=== PATIENT | female | born 1955 | race Caucasian/White ===

== ENCOUNTER → 2017-08-27 14:45 | Outpatient (CLI) | payer OTHER, SELFPAY ==
[2017-08-27 15:20] LABS: Mean Corpuscular HGB Conc 33.8 % (30-36); White Blood Cell Count 2.2 X10^3/uL (4.5-11.0)
[2017-08-27 15:43] LABS: Add Manual Diff / Slide Review YES; Hemoglobin 11.2 g/dL (12.0-16.0); Mean Corpuscular Hemoglobin 34.9 PG (26-34); Mean Corpuscular Volume 103.2 fL (80-100); Platelet Count 155 X10^3/uL (150-400); Red Cell Distribution Width 17.8 % (11.6-14.8)
[2017-08-27 16:11] LABS: Neutrophils Absolute Manual 1188 /uL (3000-5900); Total Cells Counted 100
[2017-08-27 16:12] LABS: Anisocytosis 1+; Macrocytosis 1+
== END ==
PROVIDERS: PCP Internal Medicine Medical Oncology; Visit Provider Internal Medicine Medical Oncology
DX: C50.919 Malignant neoplasm of unspecified site of unspecified female breast (principal)
CPT/HCPCS: 36415; 85025

== ENCOUNTER → 2017-09-27 16:25 | Outpatient (CLI) | payer OTHER, SELFPAY ==
[2017-09-27 16:58] LABS: Add Manual Diff / Slide Review NO; Basophils Percent Auto 3.9 % (0-2); Eosinophils Percent Auto 1.4 % (2-4); Hematocrit 34.2 % (36-46); Hemoglobin 11.5 g/dL (12.0-16.0); Lymphocytes Percent Auto 23.1 % (25-40); Mean Corpuscular HGB Conc 33.6 % (30-36); Mean Corpuscular Hemoglobin 35.1 PG (26-34); Mean Corpuscular Volume 104.4 fL (80-100); Neutrophils Absolute Auto 1300 /uL (3000-5900); Neutrophils Percent Auto 56.6 % (50-75); Platelet Count 191 X10^3/uL (150-400); Red Blood Cell Count 3.28 X10^6/uL (4.0-5.2); Red Cell Distribution Width 17.4 % (11.6-14.8); White Blood Cell Count 2.4 X10^3/uL (4.5-11.0)
== END ==
PROVIDERS: PCP Internal Medicine Medical Oncology; Visit Provider Internal Medicine Medical Oncology
DX: C50.919 Malignant neoplasm of unspecified site of unspecified female breast (principal)
CPT/HCPCS: 36415; 85025

== ENCOUNTER → 2017-10-27 15:57 | Outpatient (CLI) | payer OTHER, SELFPAY ==
[2017-10-27 17:37] LABS: Hemoglobin 11.3 g/dL (12.0-16.0); Mean Corpuscular Hemoglobin 35.5 PG (26-34); Red Blood Cell Count 3.18 X10^6/uL (4.0-5.2)
[2017-10-27 17:43] LABS: Add Manual Diff / Slide Review NO; Basophils Percent Auto 1.8 % (0-2); Eosinophils Percent Auto 1.3 % (2-4); Hematocrit 33.5 % (36-46); Lymphocytes Percent Auto 27.4 % (25-40); Mean Corpuscular HGB Conc 33.7 % (30-36); Mean Corpuscular Volume 105.4 fL (80-100); Monocytes Percent Auto 12.8 % (3-14); Neutrophils Absolute Auto 1300 /uL (3000-5900); Neutrophils Percent Auto 56.7 % (50-75); Platelet Count 169 X10^3/uL (150-400); Red Cell Distribution Width 17.6 % (11.6-14.8)
[2017-10-27 17:44] LABS: White Blood Cell Count 2.4 X10^3/uL (4.5-11.0)
== END ==
PROVIDERS: PCP Internal Medicine Medical Oncology; Visit Provider Internal Medicine Medical Oncology
DX: C50.919 Malignant neoplasm of unspecified site of unspecified female breast (principal)
CPT/HCPCS: 36415; 85025

== ENCOUNTER → 2017-11-26 13:56 | Outpatient (CLI) | payer OTHER, SELFPAY ==
[2017-11-26 14:27] LABS: Add Manual Diff / Slide Review NO; Basophils Percent Auto 1.8 % (0-2); Eosinophils Percent Auto 1.5 % (2-4); Lymphocytes Percent Auto 27.3 % (25-40); Mean Corpuscular HGB Conc 33.5 % (30-36); Mean Corpuscular Hemoglobin 35.1 PG (26-34); Mean Corpuscular Volume 104.7 fL (80-100); Monocytes Percent Auto 14.9 % (3-14); Neutrophils Absolute Auto 1200 /uL (3000-5900); Neutrophils Percent Auto 54.5 % (50-75); Platelet Count 162 X10^3/uL (150-400); Red Blood Cell Count 3.43 X10^6/uL (4.0-5.2); Red Cell Distribution Width 17.5 % (11.6-14.8); White Blood Cell Count 2.3 X10^3/uL (4.5-11.0)
== END ==
PROVIDERS: PCP Internal Medicine Medical Oncology; Visit Provider Internal Medicine Medical Oncology
DX: C50.919 Malignant neoplasm of unspecified site of unspecified female breast (principal)
CPT/HCPCS: 36415; 85025

== ENCOUNTER → 2017-12-27 17:35 | Outpatient (CLI) | payer OTHER, SELFPAY ==
[2017-12-27 18:44] LABS: Add Manual Diff / Slide Review NO; Basophils Percent Auto 2.5 % (0-2); Hematocrit 33.7 % (36-46); Hemoglobin 11.3 g/dL (12.0-16.0); Lymphocytes Percent Auto 22.6 % (25-40); Mean Corpuscular HGB Conc 33.5 % (30-36); Mean Corpuscular Hemoglobin 35.4 PG (26-34); Mean Corpuscular Volume 105.7 fL (80-100); Monocytes Percent Auto 14.2 % (3-14); Neutrophils Absolute Auto 1600 /uL (3000-5900); Neutrophils Percent Auto 59.7 % (50-75); Platelet Count 209 X10^3/uL (150-400); Red Blood Cell Count 3.19 X10^6/uL (4.0-5.2); Red Cell Distribution Width 17.7 % (11.6-14.8); White Blood Cell Count 2.7 X10^3/uL (4.5-11.0)
== END ==
PROVIDERS: PCP Internal Medicine Medical Oncology; Visit Provider Internal Medicine Medical Oncology
DX: C50.919 Malignant neoplasm of unspecified site of unspecified female breast (principal)
CPT/HCPCS: 36415; 85025

== ENCOUNTER → 2018-03-30 17:34 | Outpatient (CLI) | payer OTHER, SELFPAY ==
[2018-03-30 18:19] LABS: Add Manual Diff / Slide Review NO; Basophils Percent Auto 2.3 % (0-2); Eosinophils Percent Auto 1.5 % (2-4); Hemoglobin 10.9 g/dL (12.0-16.0); Lymphocytes Percent Auto 23.3 % (25-40); Mean Corpuscular Hemoglobin 34.8 PG (26-34); Mean Corpuscular Volume 105.4 fL (80-100); Monocytes Percent Auto 13.6 % (3-14); Neutrophils Absolute Auto 1400 /uL (1500-7000); Neutrophils Percent Auto 59.3 % (50-75); Platelet Count 252 X10^3/uL (150-400); Red Blood Cell Count 3.13 X10^6/uL (4.0-5.2); Red Cell Distribution Width 18.1 % (11.6-14.8); White Blood Cell Count 2.4 X10^3/uL (4.5-11.0)
== END ==
PROVIDERS: PCP Internal Medicine Medical Oncology; Visit Provider Internal Medicine Medical Oncology
DX: C50.912 Malignant neoplasm of unspecified site of left female breast (principal)
CPT/HCPCS: 36415; 85025

== ENCOUNTER → 2018-04-29 14:12 | Outpatient (CLI) | payer OTHER, SELFPAY ==
[2018-04-29 14:50] LABS: Add Manual Diff / Slide Review NO; Basophils Absolute Auto 100 /uL (0-100); Basophils Percent Auto 2.4 % (0-2); Eosinophils Absolute Auto 0 /uL (0-450); Eosinophils Percent Auto 1.3 % (2-4); Hematocrit 33.6 % (36-46); Lymphocytes Absolute Auto 500 /uL (1100-4500); Lymphocytes Percent Auto 22.1 % (25-40); Mean Corpuscular HGB Conc 32.8 % (30-36); Mean Corpuscular Hemoglobin 34.8 PG (26-34); Mean Corpuscular Volume 106.2 fL (80-100); Monocytes Absolute Auto 300 /uL (0-900); Monocytes Percent Auto 11.8 % (3-14); Neutrophils Absolute Auto 1400 /uL (1500-7000); Neutrophils Percent Auto 62.4 % (50-75); Platelet Count 218 X10^3/uL (150-400); Red Blood Cell Count 3.16 X10^6/uL (4.0-5.2); White Blood Cell Count 2.3 X10^3/uL (4.5-11.0)
== END ==
PROVIDERS: PCP Internal Medicine Medical Oncology; Visit Provider Internal Medicine Medical Oncology
DX: C50.919 Malignant neoplasm of unspecified site of unspecified female breast (principal)
CPT/HCPCS: 36415; 85025

== ENCOUNTER → 2018-07-02 12:41 | Outpatient (CLI) | payer OTHER, SELFPAY ==
[2018-07-02 13:23] LABS: Add Manual Diff / Slide Review NO; Basophils Absolute Auto 0 /uL (0-100); Basophils Percent Auto 1.2 % (0-2); Eosinophils Absolute Auto 0 /uL (0-450); Eosinophils Percent Auto 1.2 % (2-4); Hematocrit 32.1 % (36-46); Hemoglobin 10.8 g/dL (12.0-16.0); Lymphocytes Absolute Auto 400 /uL (1100-4500); Lymphocytes Percent Auto 17.9 % (25-40); Mean Corpuscular HGB Conc 33.5 % (30-36); Mean Corpuscular Hemoglobin 34.9 PG (26-34); Mean Corpuscular Volume 104.3 fL (80-100); Monocytes Absolute Auto 300 /uL (0-900); Monocytes Percent Auto 13.1 % (3-14); Neutrophils Absolute Auto 1500 /uL (1500-7000); Neutrophils Percent Auto 66.6 % (50-75); Platelet Count 244 X10^3/uL (150-400); Red Blood Cell Count 3.08 X10^6/uL (4.0-5.2); Red Cell Distribution Width 19.3 % (11.6-14.8); White Blood Cell Count 2.3 X10^3/uL (4.5-11.0)
== END ==
PROVIDERS: PCP Internal Medicine Medical Oncology; Visit Provider Internal Medicine Medical Oncology
DX: C50.919 Malignant neoplasm of unspecified site of unspecified female breast (principal)
CPT/HCPCS: 36415; 85025

== ENCOUNTER → 2018-08-02 16:36 | Outpatient (CLI) | payer OTHER, SELFPAY ==
[2018-08-02 17:36] LABS: Add Manual Diff / Slide Review NO; Basophils Absolute Auto 100 /uL (0-100); Basophils Percent Auto 2.3 % (0-2); Eosinophils Absolute Auto 0 /uL (0-450); Hematocrit 34.3 % (36-46); Lymphocytes Absolute Auto 500 /uL (1100-4500); Lymphocytes Percent Auto 20.5 % (25-40); Mean Corpuscular HGB Conc 32.2 % (30-36); Mean Corpuscular Hemoglobin 33.8 PG (26-34); Mean Corpuscular Volume 104.8 fL (80-100); Monocytes Absolute Auto 400 /uL (0-900); Monocytes Percent Auto 15.4 % (3-14); Neutrophils Absolute Auto 1600 /uL (1500-7000); Neutrophils Percent Auto 60.8 % (50-75); Platelet Count 273 X10^3/uL (150-400); Red Blood Cell Count 3.27 X10^6/uL (4.0-5.2); Red Cell Distribution Width 18.8 % (11.6-14.8); White Blood Cell Count 2.6 X10^3/uL (4.5-11.0)
== END ==
PROVIDERS: PCP Internal Medicine Medical Oncology; Visit Provider Internal Medicine Medical Oncology
DX: C50.919 Malignant neoplasm of unspecified site of unspecified female breast (principal)
CPT/HCPCS: 36415; 85025

== ENCOUNTER → 2018-10-04 17:45 | Outpatient (CLI) | payer OTHER, SELFPAY ==
[2018-10-04 18:23] LABS: Add Manual Diff / Slide Review NO; Basophils Absolute Auto 0 /uL (0-100); Basophils Percent Auto 1.4 % (0-2); Eosinophils Absolute Auto 0 /uL (0-450); Eosinophils Percent Auto 1.5 % (2-4); Hematocrit 31.5 % (36-46); Hemoglobin 10.1 g/dL (12.0-16.0); Lymphocytes Absolute Auto 700 /uL (1100-4500); Lymphocytes Percent Auto 23.3 % (25-40); Mean Corpuscular HGB Conc 32.1 % (30-36); Mean Corpuscular Hemoglobin 33.1 PG (26-34); Mean Corpuscular Volume 103.3 fL (80-100); Monocytes Absolute Auto 400 /uL (0-900); Neutrophils Absolute Auto 1800 /uL (1500-7000); Neutrophils Percent Auto 61.8 % (50-75); Platelet Count 370 X10^3/uL (150-400); Red Blood Cell Count 3.05 X10^6/uL (4.0-5.2); Red Cell Distribution Width 21.4 % (11.6-14.8); White Blood Cell Count 2.9 X10^3/uL (4.5-11.0)
[2018-10-04 18:59] LABS: Anisocytosis 3+; Macrocytosis 2+
[2018-10-04 19:00] LABS: Polychromasia 1+
== END ==
PROVIDERS: PCP Internal Medicine Medical Oncology; Visit Provider Internal Medicine Medical Oncology
DX: C50.919 Malignant neoplasm of unspecified site of unspecified female breast (principal)
CPT/HCPCS: 36415; 85025

== ENCOUNTER → 2018-11-02 17:44 | Outpatient (CLI) | payer OTHER, SELFPAY ==
[2018-11-02 18:28] LABS: Hemoglobin 10.1 g/dL (12.0-16.0); Mean Corpuscular HGB Conc 32.6 % (30-36); Mean Corpuscular Hemoglobin 34.4 PG (26-34); Mean Corpuscular Volume 105.5 fL (80-100); Platelet Count 231 X10^3/uL (150-400); Red Blood Cell Count 2.93 X10^6/uL (4.0-5.2); Red Cell Distribution Width 22.9 % (11.6-14.8)
[2018-11-02 18:30] LABS: Add Manual Diff / Slide Review YES
[2018-11-02 18:37] LABS: White Blood Cell Count 1.8 X10^3/uL (4.5-11.0)
[2018-11-02 19:18] LABS: Neutrophils Absolute Manual 1008 /uL (3000-5900); Total Cells Counted 100
[2018-11-02 19:20] LABS: Anisocytosis 2+
== END ==
PROVIDERS: PCP Internal Medicine Medical Oncology; Visit Provider Internal Medicine Medical Oncology
DX: C50.919 Malignant neoplasm of unspecified site of unspecified female breast (principal)
CPT/HCPCS: 36415; 85025

== ENCOUNTER → 2018-11-24 15:54 | Outpatient (CLI) | payer OTHER, SELFPAY ==
[2018-11-24 16:54] LABS: Hematocrit 28.4 % (36-46); Hemoglobin 9.4 g/dL (12.0-16.0); Mean Corpuscular HGB Conc 33.2 % (30-36); Mean Corpuscular Hemoglobin 34.5 PG (26-34); Mean Corpuscular Volume 103.7 fL (80-100); Platelet Count 175 X10^3/uL (150-400); Red Blood Cell Count 2.74 X10^6/uL (4.0-5.2); Red Cell Distribution Width 20.6 % (11.6-14.8)
[2018-11-24 17:36] LABS: Add Manual Diff / Slide Review YES
[2018-11-24 17:55] LABS: Anisocytosis 1+; Neutrophils Absolute Manual 1071 /uL (3000-5900); Total Cells Counted 100
[2018-11-24 17:57] LABS: Albumin 3.5 g/dL (3.5-5.0); BUN Creatinine Ratio 23.6 (6-22); Blood Urea Nitrogen 26 mg/dL (7-17); Calcium 9.8 mg/dL (8.4-10.2); Carbon Dioxide 28 mmol/L (22-32); Chloride 108 mmol/L (98-107); Estimated Glomerular Filt Rate 50.2 mL/min (>60); Glucose 83 mg/dL (80-110); HEMOLYSIS 19 (0-50); Potassium 4.4 mmol/L (3.4-5.1); Sodium 142 mmol/L (137-145)
[2018-11-24 18:55] LABS: White Blood Cell Count 1.7 X10^3/uL (4.5-11.0)
== END ==
PROVIDERS: PCP Internal Medicine Medical Oncology; Visit Provider Internal Medicine Nephrology
DX: N18.3 Chronic kidney disease, stage 3 (moderate) (principal)
CPT/HCPCS: 36415; 80069; 85025

== ENCOUNTER → 2018-11-25 17:23 | Outpatient (CLI) | payer OTHER, SELFPAY ==
[2018-11-25 18:05] LABS: Creatinine Urine Random 17.7 mg/dL; Protein (Total) Urine Random 16 mg/dL (0-12)
== END ==
PROVIDERS: PCP Internal Medicine Medical Oncology; Visit Provider Internal Medicine Nephrology
DX: N18.3 Chronic kidney disease, stage 3 (moderate) (principal)
CPT/HCPCS: 82570; 84156

== ENCOUNTER → 2018-12-03 12:24 | Outpatient (CLI) | payer OTHER, SELFPAY ==
[2018-12-03 13:39] LABS: Hematocrit 29.8 % (36-46); Hemoglobin 9.7 g/dL (12.0-16.0); Mean Corpuscular HGB Conc 32.6 % (30-36); Mean Corpuscular Hemoglobin 34.6 PG (26-34); Mean Corpuscular Volume 106.1 fL (80-100); Platelet Count 210 X10^3/uL (150-400); Red Blood Cell Count 2.81 X10^6/uL (4.0-5.2); Red Cell Distribution Width 21.2 % (11.6-14.8)
[2018-12-03 13:48] LABS: Add Manual Diff / Slide Review YES; White Blood Cell Count 1.8 X10^3/uL (4.5-11.0)
[2018-12-03 14:49] LABS: Neutrophils Absolute Manual 972 /uL (3000-5900); Total Cells Counted 100
[2018-12-03 14:50] LABS: Anisocytosis 2+
== END ==
PROVIDERS: PCP Internal Medicine Medical Oncology; Visit Provider Internal Medicine Medical Oncology
DX: C50.919 Malignant neoplasm of unspecified site of unspecified female breast (principal)
CPT/HCPCS: 36415; 85025

== ENCOUNTER → 2019-01-03 17:16 | Outpatient (CLI) | payer OTHER, SELFPAY ==
[2019-01-03 17:56] LABS: Hematocrit 28.3 % (36-46); Hemoglobin 9.2 g/dL (12.0-16.0); Mean Corpuscular HGB Conc 32.5 % (30-36); Mean Corpuscular Hemoglobin 34.6 PG (26-34); Mean Corpuscular Volume 106.4 fL (80-100); Platelet Count 206 X10^3/uL (150-400); Red Blood Cell Count 2.66 X10^6/uL (4.0-5.2); Red Cell Distribution Width 20.3 % (11.6-14.8)
[2019-01-03 18:01] LABS: Add Manual Diff / Slide Review YES
[2019-01-03 18:21] LABS: Anisocytosis 2+; Neutrophils Absolute Manual 1140 /uL (3000-5900); Total Cells Counted 50
[2019-01-03 18:22] LABS: Macrocytosis 2+
[2019-01-03 19:33] LABS: White Blood Cell Count 1.9 X10^3/uL (4.5-11.0)
== END ==
PROVIDERS: PCP Internal Medicine Medical Oncology; Visit Provider Internal Medicine Medical Oncology
DX: C50.919 Malignant neoplasm of unspecified site of unspecified female breast (principal)
CPT/HCPCS: 36415; 85025

== ENCOUNTER → 2019-02-03 16:58 | Outpatient (CLI) | payer OTHER, SELFPAY ==
[2019-02-03 17:49] LABS: Hematocrit 28.7 % (36-46); Hemoglobin 9.2 g/dL (12.0-16.0); Mean Corpuscular HGB Conc 32.1 % (30-36); Mean Corpuscular Hemoglobin 34.6 PG (26-34); Mean Corpuscular Volume 107.7 fL (80-100); Platelet Count 223 X10^3/uL (150-400); Red Blood Cell Count 2.66 X10^6/uL (4.0-5.2); Red Cell Distribution Width 21.5 % (11.6-14.8)
[2019-02-03 17:50] LABS: Add Manual Diff / Slide Review YES
[2019-02-03 18:13] LABS: Neutrophils Absolute Manual 1280 /uL (3000-5900); Total Cells Counted 50
[2019-02-03 18:14] LABS: Anisocytosis 3+
== END ==
PROVIDERS: PCP Internal Medicine Medical Oncology; Visit Provider Internal Medicine Medical Oncology
DX: C50.919 Malignant neoplasm of unspecified site of unspecified female breast (principal)
CPT/HCPCS: 36415; 85025

== ENCOUNTER → 2019-03-06 16:13 | Outpatient (CLI) | payer OTHER, SELFPAY ==
[2019-03-06 17:33] LABS: Hemoglobin 9.6 g/dL (12.0-16.0); Mean Corpuscular Hemoglobin 33.8 PG (26-34); Mean Corpuscular Volume 105.9 fL (80-100); Platelet Count 298 X10^3/uL (150-400); Red Blood Cell Count 2.84 X10^6/uL (4.0-5.2); Red Cell Distribution Width 21.5 % (11.6-14.8); White Blood Cell Count 2.7 X10^3/uL (4.5-11.0)
[2019-03-06 17:37] LABS: Add Manual Diff / Slide Review YES
[2019-03-06 17:55] LABS: Neutrophils Absolute Manual 1674 /uL (3000-5900); Total Cells Counted 50
[2019-03-06 17:56] LABS: Anisocytosis 2+; Macrocytosis 1+; Poikilocytosis 1+
[2019-03-06 17:57] LABS: Polychromasia 1+
== END ==
PROVIDERS: PCP Internal Medicine Medical Oncology; Visit Provider Internal Medicine Medical Oncology
DX: C50.919 Malignant neoplasm of unspecified site of unspecified female breast (principal)
CPT/HCPCS: 36415; 85025

== ENCOUNTER → 2019-04-06 16:06 | Outpatient (CLI) | payer OTHER, SELFPAY ==
[2019-04-06 17:12] LABS: Hematocrit 30.4 % (36-46); Mean Corpuscular Hemoglobin 34.2 PG (26-34); Mean Corpuscular Volume 103.7 fL (80-100); Platelet Count 185 X10^3/uL (150-400); Red Blood Cell Count 2.93 X10^6/uL (4.0-5.2); Red Cell Distribution Width 19.7 % (11.6-14.8)
[2019-04-06 17:13] LABS: Add Manual Diff / Slide Review YES
[2019-04-06 17:17] LABS: Macrocytosis 1+; Neutrophils Absolute Manual 1216 /uL (3000-5900); Total Cells Counted 25
[2019-04-06 17:18] LABS: Anisocytosis 2+; Poikilocytosis 1+
[2019-04-06 17:25] LABS: White Blood Cell Count 1.9 X10^3/uL (4.5-11.0)
== END ==
PROVIDERS: PCP Internal Medicine Medical Oncology; Visit Provider Internal Medicine Medical Oncology
DX: C50.919 Malignant neoplasm of unspecified site of unspecified female breast (principal)
CPT/HCPCS: 36415; 85025

== ENCOUNTER → 2019-05-10 16:34 | Outpatient (CLI) | payer OTHER, SELFPAY ==
[2019-05-10 17:25] LABS: Add Manual Diff / Slide Review NO; Basophils Absolute Auto 100 /uL (0-100); Basophils Percent Auto 3.3 % (0-2); Eosinophils Absolute Auto 0 /uL (0-450); Eosinophils Percent Auto 0.6 % (2-4); Hematocrit 27.9 % (36-46); Hemoglobin 9.4 g/dL (12.0-16.0); Lymphocytes Absolute Auto 400 /uL (1100-4500); Lymphocytes Percent Auto 19.3 % (25-40); Mean Corpuscular HGB Conc 33.6 % (30-36); Mean Corpuscular Hemoglobin 34.8 PG (26-34); Mean Corpuscular Volume 103.5 fL (80-100); Monocytes Absolute Auto 400 /uL (0-900); Monocytes Percent Auto 18.9 % (3-14); Neutrophils Absolute Auto 1200 /uL (1500-7000); Neutrophils Percent Auto 57.9 % (50-75); Platelet Count 360 X10^3/uL (150-400); Red Cell Distribution Width 20.5 % (11.6-14.8)
[2019-05-10 18:13] LABS: Macrocytosis 1+; Polychromasia 1+
[2019-05-10 18:14] LABS: Anisocytosis 2+
== END ==
PROVIDERS: PCP Internal Medicine Medical Oncology; Referring Provider Internal Medicine Medical Oncology; Visit Provider Internal Medicine Medical Oncology
DX: C50.919 Malignant neoplasm of unspecified site of unspecified female breast (principal)
CPT/HCPCS: 36415; 85025

== ENCOUNTER → 2019-06-09 17:56 | Outpatient (CLI) | payer OTHER, SELFPAY ==
[2019-06-09 18:11] LABS: Add Manual Diff / Slide Review NO; Basophils Absolute Auto 100 /uL (0-100); Basophils Percent Auto 3.4 % (0-2); Eosinophils Absolute Auto 0 /uL (0-450); Eosinophils Percent Auto 1.4 % (2-4); Hemoglobin 9.2 g/dL (12.0-16.0); Lymphocytes Absolute Auto 400 /uL (1100-4500); Lymphocytes Percent Auto 19.4 % (25-40); Mean Corpuscular HGB Conc 32.8 % (30-36); Mean Corpuscular Hemoglobin 34.8 PG (26-34); Mean Corpuscular Volume 106.1 fL (80-100); Monocytes Absolute Auto 400 /uL (0-900); Monocytes Percent Auto 18.4 % (3-14); Neutrophils Absolute Auto 1200 /uL (1500-7000); Neutrophils Percent Auto 57.4 % (50-75); Platelet Count 259 X10^3/uL (150-400); Red Blood Cell Count 2.64 X10^6/uL (4.0-5.2); Red Cell Distribution Width 22.3 % (11.6-14.8); White Blood Cell Count 2.2 X10^3/uL (4.5-11.0)
[2019-06-09 18:36] LABS: Anisocytosis 3+; Macrocytosis 1+; Poikilocytosis 1+; Polychromasia 1+
== END ==
PROVIDERS: PCP Internal Medicine Medical Oncology; Referring Provider Internal Medicine Medical Oncology; Visit Provider Internal Medicine Medical Oncology
DX: C50.919 Malignant neoplasm of unspecified site of unspecified female breast (principal)
CPT/HCPCS: 36415; 85025

== ENCOUNTER → 2019-09-09 12:59 | Outpatient (CLI) | payer OTHER, SELFPAY ==
[2019-09-09 13:15] LABS: Add Manual Diff / Slide Review NO; Basophils Absolute Auto 0 /uL (0-100); Basophils Percent Auto 1.7 % (0-2); Eosinophils Absolute Auto 0 /uL (0-450); Hematocrit 29.1 % (36-46); Hemoglobin 9.8 g/dL (12.0-16.0); Lymphocytes Absolute Auto 400 /uL (1100-4500); Lymphocytes Percent Auto 17.8 % (25-40); Mean Corpuscular HGB Conc 33.6 % (30-36); Mean Corpuscular Hemoglobin 35.5 PG (26-34); Mean Corpuscular Volume 105.8 fL (80-100); Monocytes Absolute Auto 300 /uL (0-900); Monocytes Percent Auto 14.3 % (3-14); Neutrophils Absolute Auto 1400 /uL (1500-7000); Neutrophils Percent Auto 65.2 % (50-75); Platelet Count 237 X10^3/uL (150-400); Red Blood Cell Count 2.75 X10^6/uL (4.0-5.2); Red Cell Distribution Width 21.4 % (11.6-14.8); White Blood Cell Count 2.2 X10^3/uL (4.5-11.0)
[2019-09-09 13:39] LABS: Anisocytosis 1+; Macrocytosis 1+
== END ==
PROVIDERS: PCP Internal Medicine Medical Oncology; Referring Provider Internal Medicine Hematology & Oncology; Visit Provider Internal Medicine Hematology & Oncology
DX: C50.919 Malignant neoplasm of unspecified site of unspecified female breast (principal)
CPT/HCPCS: 36415; 85025

== ENCOUNTER → 2019-10-12 15:39 | Outpatient (CLI) | payer OTHER, SELFPAY ==
[2019-10-12 16:15] LABS: Add Manual Diff / Slide Review NO; Basophils Absolute Auto 100 /uL (0-100); Basophils Percent Auto 2.8 % (0-2); Eosinophils Absolute Auto 0 /uL (0-450); Eosinophils Percent Auto 1.1 % (2-4); Hematocrit 28.5 % (36-46); Hemoglobin 9.3 g/dL (12.0-16.0); Lymphocytes Absolute Auto 500 /uL (1100-4500); Lymphocytes Percent Auto 18.1 % (25-40); Mean Corpuscular HGB Conc 32.5 % (30-36); Mean Corpuscular Hemoglobin 34.1 PG (26-34); Mean Corpuscular Volume 104.9 fL (80-100); Monocytes Absolute Auto 400 /uL (0-900); Monocytes Percent Auto 16.3 % (3-14); Neutrophils Absolute Auto 1600 /uL (1500-7000); Neutrophils Percent Auto 61.7 % (50-75); Platelet Count 381 X10^3/uL (150-400); Red Blood Cell Count 2.72 X10^6/uL (4.0-5.2); Red Cell Distribution Width 20.9 % (11.6-14.8); White Blood Cell Count 2.6 X10^3/uL (4.5-11.0)
[2019-10-12 17:02] LABS: Alanine Aminotransferase 10 IU/L (<35); Albumin 3.7 g/dL (3.5-5.0); Albumin Globulin Ratio 1.1 (1.0-2.8); Alkaline Phosphatase 50 U/L (38-126); Aspartate Aminotransferase 30 IU/L (14-36); BUN Creatinine Ratio 17.6 (6-22); Bilirubin Total 0.2 mg/dL (0.2-1.3); Blood Urea Nitrogen 18 mg/dL (7-17); Calcium 10.3 mg/dL (8.4-10.2); Carbon Dioxide 28 mmol/L (22-32); Chloride 107 mmol/L (98-107); Estimated Glomerular Filt Rate 54.6 mL/min (>60); Globulin 3.3 g/dL (1.7-4.1); Glucose 96 mg/dL (80-110); HEMOLYSIS < 15 (0-50); Potassium 4.3 mmol/L (3.4-5.1); Sodium 141 mmol/L (137-145)
[2019-10-12 17:17] LABS: Anisocytosis 1+; Macrocytosis 1+; Polychromasia 1+
[2019-10-12 17:33] LABS: Carcinoembryonic Antigen 11.8 ng/mL (0.1-3.0)
== END ==
PROVIDERS: PCP Internal Medicine Medical Oncology; Referring Provider Nurse Practitioner; Visit Provider Nurse Practitioner
DX: C50.919 Malignant neoplasm of unspecified site of unspecified female breast (principal)
CPT/HCPCS: 36415; 80053; 82378; 85025; 86300

== ENCOUNTER → 2019-11-10 16:26 | Outpatient (CLI) | payer OTHER, SELFPAY ==
[2019-11-10 17:12] LABS: Add Manual Diff / Slide Review NO; Basophils Absolute Auto 100 /uL (0-100); Basophils Percent Auto 2.6 % (0-2); Eosinophils Absolute Auto 0 /uL (0-450); Eosinophils Percent Auto 0.6 % (2-4); Hematocrit 28.4 % (36-46); Hemoglobin 9.3 g/dL (12.0-16.0); Lymphocytes Absolute Auto 400 /uL (1100-4500); Lymphocytes Percent Auto 17.7 % (25-40); Mean Corpuscular HGB Conc 32.7 % (30-36); Mean Corpuscular Hemoglobin 34.4 PG (26-34); Mean Corpuscular Volume 105.2 fL (80-100); Monocytes Absolute Auto 300 /uL (0-900); Monocytes Percent Auto 13.8 % (3-14); Neutrophils Absolute Auto 1400 /uL (1500-7000); Neutrophils Percent Auto 65.3 % (50-75); Platelet Count 260 X10^3/uL (150-400); Red Cell Distribution Width 21.9 % (11.6-14.8); White Blood Cell Count 2.2 X10^3/uL (4.5-11.0)
[2019-11-10 17:24] LABS: Alanine Aminotransferase 9 IU/L (<35); Albumin 3.7 g/dL (3.5-5.0); Albumin Globulin Ratio 1.1 (1.0-2.8); Alkaline Phosphatase 54 U/L (38-126); Aspartate Aminotransferase 30 IU/L (14-36); BUN Creatinine Ratio 19.1 (6-22); Bilirubin Total 0.3 mg/dL (0.2-1.3); Blood Urea Nitrogen 18 mg/dL (7-17); Calcium 10.4 mg/dL (8.4-10.2); Carbon Dioxide 30 mmol/L (22-32); Chloride 107 mmol/L (98-107); Globulin 3.5 g/dL (1.7-4.1); Glucose 95 mg/dL (80-110); HEMOLYSIS < 15 (0-50); Potassium 4.3 mmol/L (3.4-5.1); Sodium 143 mmol/L (137-145); Total Protein 7.2 g/dL (6.3-8.2)
[2019-11-10 17:31] LABS: Anisocytosis 2+; Macrocytosis 1+
[2019-11-10 17:53] LABS: Carcinoembryonic Antigen 11.3 ng/mL (0.1-3.0)
== END ==
PROVIDERS: PCP Internal Medicine Medical Oncology; Referring Provider Nurse Practitioner; Visit Provider Nurse Practitioner
DX: C50.919 Malignant neoplasm of unspecified site of unspecified female breast (principal)
CPT/HCPCS: 36415; 80053; 82378; 85025; 86300

== ENCOUNTER → 2019-12-12 15:42 | Outpatient (CLI) | payer OTHER, SELFPAY ==
[2019-12-12 17:08] LABS: Add Manual Diff / Slide Review NO; Basophils Absolute Auto 100 /uL (0-100); Basophils Percent Auto 3.6 % (0-2); Eosinophils Absolute Auto 0 /uL (0-450); Eosinophils Percent Auto 0.8 % (2-4); Hematocrit 29.7 % (36-46); Hemoglobin 9.8 g/dL (12.0-16.0); Lymphocytes Absolute Auto 400 /uL (1100-4500); Lymphocytes Percent Auto 14.5 % (25-40); Mean Corpuscular HGB Conc 32.9 % (30-36); Mean Corpuscular Hemoglobin 34.7 PG (26-34); Mean Corpuscular Volume 105.5 fL (80-100); Monocytes Absolute Auto 400 /uL (0-900); Monocytes Percent Auto 13.9 % (3-14); Neutrophils Absolute Auto 1900 /uL (1500-7000); Neutrophils Percent Auto 67.2 % (50-75); Platelet Count 396 X10^3/uL (150-400); Red Blood Cell Count 2.82 X10^6/uL (4.0-5.2); Red Cell Distribution Width 22.1 % (11.6-14.8); White Blood Cell Count 2.9 X10^3/uL (4.5-11.0)
[2019-12-12 17:26] LABS: Alanine Aminotransferase 14 IU/L (<35); Albumin 4.2 g/dL (3.5-5.0); Alkaline Phosphatase 58 U/L (38-126); Aspartate Aminotransferase 38 IU/L (14-36); BUN Creatinine Ratio 16.7 (6-22); Bilirubin Total 0.3 mg/dL (0.2-1.3); Blood Urea Nitrogen 16 mg/dL (7-17); Calcium 10.4 mg/dL (8.4-10.2); Carbon Dioxide 31 mmol/L (22-32); Chloride 105 mmol/L (98-107); Estimated Glomerular Filt Rate 58.5 mL/min (>60); Globulin 4.4 g/dL (1.7-4.1); Glucose 97 mg/dL (80-110); HEMOLYSIS < 15 (0-50); Potassium 3.4 mmol/L (3.4-5.1); Sodium 142 mmol/L (137-145); Total Protein 8.6 g/dL (6.3-8.2)
[2019-12-12 17:52] LABS: Anisocytosis 3+; Macrocytosis 3+
[2019-12-12 17:56] LABS: Carcinoembryonic Antigen 12.3 ng/mL (0.1-3.0)
[2019-12-13 07:08] LABS: Cancer Antigen 27.29 2028.5 U/mL (0.0-38.6)
== END ==
PROVIDERS: Internal Medicine; PCP Internal Medicine Medical Oncology; Referring Provider Nurse Practitioner; Visit Provider Nurse Practitioner
DX: C50.919 Malignant neoplasm of unspecified site of unspecified female breast (principal)
CPT/HCPCS: 36415; 80053; 82378; 85025; 86300

== ENCOUNTER → 2020-01-12 15:09 | Outpatient (CLI) | payer OTHER, SELFPAY ==
[2020-01-12 16:48] LABS: Add Manual Diff / Slide Review NO; Basophils Absolute Auto 100 /uL (0-100); Basophils Percent Auto 2.9 % (0-2); Eosinophils Absolute Auto 0 /uL (0-450); Eosinophils Percent Auto 0.6 % (2-4); Hematocrit 28.7 % (36-46); Hemoglobin 9.4 g/dL (12.0-16.0); Lymphocytes Absolute Auto 400 /uL (1100-4500); Mean Corpuscular HGB Conc 32.8 % (30-36); Mean Corpuscular Hemoglobin 35.1 PG (26-34); Mean Corpuscular Volume 107.2 fL (80-100); Monocytes Absolute Auto 400 /uL (0-900); Monocytes Percent Auto 16.6 % (3-14); Neutrophils Absolute Auto 1600 /uL (1500-7000); Neutrophils Percent Auto 62.9 % (50-75); Platelet Count 326 X10^3/uL (150-400); Red Blood Cell Count 2.68 X10^6/uL (4.0-5.2); Red Cell Distribution Width 22.8 % (11.6-14.8); White Blood Cell Count 2.6 X10^3/uL (4.5-11.0)
[2020-01-12 18:34] LABS: Macrocytosis 1+; Polychromasia 1+; Spherocytes 1+
[2020-01-12 18:35] LABS: Schistocytes 1+
[2020-01-12 18:51] LABS: Alanine Aminotransferase 10 IU/L (<35); Albumin 3.7 g/dL (3.5-5.0); Albumin Globulin Ratio 1.1 (1.0-2.8); Alkaline Phosphatase 56 U/L (38-126); Aspartate Aminotransferase 32 IU/L (14-36); BUN Creatinine Ratio 16.7 (6-22); Bilirubin Total 0.3 mg/dL (0.2-1.3); Blood Urea Nitrogen 17 mg/dL (7-17); Calcium 10.1 mg/dL (8.4-10.2); Carbon Dioxide 29 mmol/L (22-32); Chloride 106 mmol/L (98-107); Estimated Glomerular Filt Rate 54.4 mL/min (>60); Globulin 3.5 g/dL (1.7-4.1); Glucose 94 mg/dL (80-110); HEMOLYSIS < 15 (0-50); Potassium 4.6 mmol/L (3.4-5.1); Sodium 141 mmol/L (137-145); Total Protein 7.2 g/dL (6.3-8.2)
== END ==
PROVIDERS: Referring Provider Nurse Practitioner; Visit Provider Nurse Practitioner
DX: C50.919 Malignant neoplasm of unspecified site of unspecified female breast (principal)
CPT/HCPCS: 36415; 80053; 82378; 85025; 86300

== ENCOUNTER → 2020-04-17 16:00 | Outpatient (CLI) | payer OTHER, SELFPAY ==
[2020-04-17 17:16] LABS: Add Manual Diff / Slide Review NO; Basophils Absolute Auto 100 /uL (0-100); Basophils Percent Auto 3.6 % (0-2); Eosinophils Absolute Auto 0 /uL (0-450); Eosinophils Percent Auto 0.4 % (2-4); Hematocrit 26.9 % (36-46); Hemoglobin 8.6 g/dL (12.0-16.0); Lymphocytes Absolute Auto 400 /uL (1100-4500); Lymphocytes Percent Auto 15.7 % (25-40); Mean Corpuscular HGB Conc 32.1 % (30-36); Mean Corpuscular Hemoglobin 34.2 PG (26-34); Mean Corpuscular Volume 106.7 fL (80-100); Monocytes Absolute Auto 600 /uL (0-900); Monocytes Percent Auto 20.9 % (3-14); Neutrophils Absolute Auto 1600 /uL (1500-7000); Neutrophils Percent Auto 59.4 % (50-75); Platelet Count 488 X10^3/uL (150-400); Red Blood Cell Count 2.53 X10^6/uL (4.0-5.2); Red Cell Distribution Width 22.1 % (11.6-14.8); White Blood Cell Count 2.7 X10^3/uL (4.5-11.0)
[2020-04-17 17:48] LABS: Anisocytosis 2+; Hypochromasia 1+; Macrocytosis 1+; Poikilocytosis 1+; Polychromasia 1+
[2020-04-17 18:20] LABS: Alanine Aminotransferase 9 IU/L (<35); Albumin 3.7 g/dL (3.5-5.0); Albumin Globulin Ratio 0.9 (1.0-2.8); Alkaline Phosphatase 60 U/L (38-126); Aspartate Aminotransferase 36 IU/L (14-36); BUN Creatinine Ratio 13.6 (6-22); Bilirubin Total 0.2 mg/dL (0.2-1.3); Blood Urea Nitrogen 17 mg/dL (7-17); Calcium 10.1 mg/dL (8.4-10.2); Carbon Dioxide 30 mmol/L (22-32); Chloride 105 mmol/L (98-107); Globulin 3.9 g/dL (1.7-4.1); Glucose 101 mg/dL (80-110); HEMOLYSIS < 15 (0-50); Potassium 3.7 mmol/L (3.4-5.1); Sodium 141 mmol/L (137-145); Total Protein 7.6 g/dL (6.3-8.2)
[2020-04-17 18:48] LABS: Carcinoembryonic Antigen 13.2 ng/mL (0.1-3.0)
== END ==
PROVIDERS: Referring Provider Nurse Practitioner; Visit Provider Nurse Practitioner
DX: C50.919 Malignant neoplasm of unspecified site of unspecified female breast (principal)
CPT/HCPCS: 36415; 80053; 82378; 85025; 86300

== ENCOUNTER → 2020-05-22 16:05 | Oncology outpatient (ONC) | payer OTHER, SELFPAY ==
[2019-06-21 15:06] LABS: Add Manual Diff / Slide Review NO; Basophils Absolute Auto 100 /uL (0-100); Basophils Percent Auto 2.3 % (0-2); Eosinophils Absolute Auto 0 /uL (0-450); Eosinophils Percent Auto 0.4 % (2-4); Hematocrit 31.9 % (36-46); Hemoglobin 10.3 g/dL (12.0-16.0); Lymphocytes Absolute Auto 300 /uL (1100-4500); Lymphocytes Percent Auto 12.8 % (25-40); Mean Corpuscular HGB Conc 32.2 % (30-36); Mean Corpuscular Volume 105.6 fL (80-100); Monocytes Absolute Auto 100 /uL (0-900); Monocytes Percent Auto 3.2 % (3-14); Neutrophils Absolute Auto 1800 /uL (1500-7000); Neutrophils Percent Auto 81.3 % (50-75); Platelet Count 436 X10^3/uL (150-400); Red Blood Cell Count 3.02 X10^6/uL (4.0-5.2); Red Cell Distribution Width 21.3 % (11.6-14.8); White Blood Cell Count 2.3 X10^3/uL (4.5-11.0)
[2019-06-21 15:12] LABS: Alanine Aminotransferase 9 IU/L (<35); Albumin 4.3 g/dL (3.5-5.0); Alkaline Phosphatase 64 U/L (38-126); Aspartate Aminotransferase 30 IU/L (14-36); BUN Creatinine Ratio 17.9 (6-22); Bilirubin Total 0.4 mg/dL (0.2-1.3); Blood Urea Nitrogen 22 mg/dL (7-17); Calcium 10.2 mg/dL (8.4-10.2); Carbon Dioxide 25 mmol/L (22-32); Chloride 108 mmol/L (98-107); Globulin 4.2 g/dL (1.7-4.1); Glucose 103 mg/dL (80-110); HEMOLYSIS < 15 (0-50); Potassium 4.2 mmol/L (3.4-5.1); Sodium 141 mmol/L (137-145); Total Protein 8.5 g/dL (6.3-8.2)
[2019-06-21] MEDS: FULVESTRANT 250 MG/5 ML SYR 500 MG IM (15:17)
--- NOTE | 2019-06-21 16:13 | P.CONONC_ITS ---
History of Present Illness - Data of Consult Primary Care Provider: Bang Scales MD - Consult Narrative Reason for consult: Metastatic ER positive, HER2 negative breast cancer Narrative: Sully Plasencia is a 63 year old female The patient is seen here as initial consult to establish care locally in partnership with her management until now at [facility] by Dr. Scales. Records from [facility] reviewed. Oncologic history: Diagnosis in May 2002 presenting with right pathologic femur neck fracture. CT chest abdomen and pelvis showed a large left breast mass and bilateral adenopathy in the axilla and skeletal metastases. There were also bilateral lung lesions and hilar adenopathy, no liver metastases. Because of coexisting of the left fungating breast mass and widely metastatic disease a surgical correction of her pathologic fraction was not performed and deferred to later however it never occurred. She also has not received any radiation therapy to that location. She cannot bear any weight and is essentially wheelchair bound because of this pathologic fracture. Pathology of breast mass: Mucinous invasive ductal carcinoma, strongly ER/p.r. Positive, HER2 negative. June 2012 palliative radiation to T4 to T7 and T12-L2 First line hormonal therapy with anastrozole from June 2012 to March 2014. 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 In March 2014 change of therapy to Aromasin plus everolimus. In January 2015 change of therapy to letrozole plus Ibrance due to worsening renal function and concern about everolimus contributing to it. April 2017 change of therapy to Faslodex (500 mg IM q28 d) plus continuing Ibrance 125 mg po (d1-21, q28d) due to disease progression. She has remained on this treatment since then March 2017 biopsy-proven lung metastases still ER positive, HER2 negative, a right lower lobe. Status post palliative left mastectomy. The patient would have been due for her next dose of Faslodex on June 14 pending transition to our center. She started a new cycle of Ibrance on June 08 Recent imaging: CT scan of chest abdomen pelvis with contrast and [facility] May 17, 2019: Stable her right upper lobe lung metastases 1.4 x 0.9 cm and right lower lobe lesion 2.9 x 2.3 cm. No new nodules. Right-sided pleural metastases with associated rib lesion mildly increased measuring 4.5 x 2.5 cm compared to 4 x 2.6 cm. Slight increase in small left pleural effusion. Right axillary adenopathy slightly increased measuring 2.6 and 1 point 5 cm respectively No liver lesion Slight increase in the right iliac expansile and destructive bone metastases measuring 9.3 x 8.1 cm compared to 8.7 x 7.1 cm previously in December 2018 Right femoral soft tissue mass associated with the right femoral head and neck with pathologic fracture similar in appearance. Multiple sclerotic lesions throughout the skeletal system. Overall this was interpreted as slight disease progression however not clinically significant enough to change therapy and she was recommended to continue on Faslodex plus Ibrance by Dr. Scales Labs at [facility] from May 17, 2019 showed a creatinine of 1.2 CA 15-3 of 574 Hemoglobin 9.1 white count 3 platelets 526. LFTs normal CC: Reynold Pozo MD Home Medications and Allergies Home Medications Medication Instructions Recorded Confirmed Type apixaban [Eliquis] 5 mg PO BID 06/21/19 06/21/19 History lisinopril 20 mg PO DAILY 06/21/19 06/21/19 History multivitamin 1 tab PO DAILY 06/21/19 06/21/19 History palbociclib [Ibrance] 125 mg PO DAILY 06/21/19 06/21/19 History Allergies Allergy/AdvReac Type Severity Reaction Status Date / Time bee pollen Allergy Verified 06/21/19 13:23 erythromycin base Allergy Verified 06/21/19 13:23 Medical History - Medical, Surgical, Family History Medical History: Medical History (Last Updated 06/21/19 @ 16:30 by Reynold Pozo MD) DVT (deep venous thrombosis) DVT (deep venous thrombosis) HTN (hypertension) HTN (hypertension) Review of Systems - Patient Self-Reported Symptoms SR Constitution: Fatigue/Malaise SR Musculoskeletal issues: Difficulty walking Constitutional: no weight loss, no fair state of general health Exam Vital signs: Intake and Output 06/21/19 06/21/19 06/21/19 07:59 15:59 23:59 Other: Weight 57.7 kg Patient Weight 06/21/19 23:59 Weight 57.7 kg - Constitutional negative no acute distress - Routine Chest/Breast/Axilla Exam Chest wall exam standard: Absent: tenderness Axillae: Absent: lymphadenopathy - Routine Respiratory Exam Present: Clear to auscultation bilaterally - Routine Cardiovascular Exam Present: RRR. Absent: murmur - Routine Abdominal Exam Present: soft - Routine Extremities Exam Absent: edema Results - Labs Laboratory Last Values WBC 2.3 X10^3/uL (4.5-11.0) L 06/21/19 14:50 RBC 3.02 X10^6/uL (4.0-5.2) L 06/21/19 14:50 Hgb 10.3 g/dL (12.0-16.0) L 06/21/19 14:50 Hct 31.9 % (36-46) L 06/21/19 14:50 MCV 105.6 fL (80-100) H 06/21/19 14:50 MCH 34.0 PG (26-34) 06/21/19 14:50 MCHC 32.2 % (30-36) 06/21/19 14:50 RDW 21.3 % (11.6-14.8) H 06/21/19 14:50 Plt Count 436 X10^3/uL (150-400) H 06/21/19 14:50 Neut % (Auto) 81.3 % (50-75) H 06/21/19 14:50 Lymph % (Auto) 12.8 % (25-40) L 06/21/19 14:50 Garden % (Auto) 3.2 % (3-14) 06/21/19 14:50 Eos % (Auto) 0.4 % (2-4) L 06/21/19 14:50 Baso % (Auto) 2.3 % (0-2) H 06/21/19 14:50 Neut # (Auto) 1800 /uL (4569-9048) 06/21/19 14:50 Lymph # (Auto) 300 /uL (0505-6733) L 06/21/19 14:50 Garden # (Auto) 100 /uL (0-900) 06/21/19 14:50 Eos # (Auto) 0 /uL (0-450) 06/21/19 14:50 Baso # (Auto) 100 /uL (0-100) 06/21/19 14:50 Sodium 141 mmol/L (137-145) 06/21/19 14:50 Potassium 4.2 mmol/L (3.4-5.1) 06/21/19 14:50 Chloride 108 mmol/L (98-107) H 06/21/19 14:50 Carbon Dioxide 25 mmol/L (22-32) 06/21/19 14:50 BUN 22 mg/dL (7-17) H 06/21/19 14:50 Creatinine 1.23 mg/dL (0.52-1.04) H 06/21/19 14:50 Estimated GFR 44.0 mL/min (>60) L 06/21/19 14:50 BUN/Creatinine Ratio 17.9 (6-22) 06/21/19 14:50 Glucose 103 mg/dL (80-110) 06/21/19 14:50 Calcium 10.2 mg/dL (8.4-10.2) 06/21/19 14:50 Total Bilirubin 0.4 mg/dL (0.2-1.3) 06/21/19 14:50 AST 30 IU/L (14-36) 06/21/19 14:50 ALT 9 IU/L (<35) 06/21/19 14:50 Alkaline Phosphatase 64 U/L (38-126) 06/21/19 14:50 Total Protein 8.5 g/dL (6.3-8.2) H 06/21/19 14:50 Albumin 4.3 g/dL (3.5-5.0) 06/21/19 14:50 Globulin 4.2 g/dL (1.7-4.1) H 06/21/19 14:50 Albumin/Globulin Ratio 1.0 (1.0-2.8) 06/21/19 14:50 Assessment and Plan (1) Breast cancer Current visit: Yes Status: Acute 63-year-old lady with low-grade 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 Unfortunately she presented with widespread metastatic disease to the skeletal system, pathologic fracture of the right femur and fungating mass in the left breast in early 2012 as initial presentation. Her disease has been managed at [facility] by Dr. Scales. She is wheelchair bound and cannot bear any weight on the right side due to the pathologic fracture which unfortunately was not surgically corrected due to the widespread metastatic disease. She would have required a hip fluid replacement. She has not received any radiation to the right femur and does not have much of pain currently in that area. She has undergone palliative left mastectomy and pleurodesis as well as pericardial window. The thoracic and upper lumbar spine has received palliative radiation at initial diagnosis in 2012 (T4-T7, T12-L2) She lives on [facility] and is here with her son. She wants to continue her care here locally given the coronal virus situation and limiting long travels to [place]. She has had good disease control for 7 years now on multiple lines of hormonal therapy and other biologic oral agents as outlined above without usage of any chemotherapy. She has been exposed anastrozole, then Aromasin plus everolimus, then letrozole plus Ibrance and most recently Faslodex injections plus Ibrance which has been ongoing since April 2017. She has some cytopenias due to Ibrance which is given at full dose of 125 mg p.o. daily, 3 weeks on, 1 week off. Her Faslodex injection is also at standard dose of 500 mg every 4 weeks IM. Recent imaging in form of CT chest abdomen and pelvis with contrast of May 2019 at [facility] reviewed and summarized above showing slight progression of her limited lung metastases and right hilar and axillary adenopathy and slight progression of the expansile bony lesion in the right hip. However the measurements show only mild increase compared to December 2018 and therefore no change in therapy was warranted. She was started on Zometa for bone support since July 2012 but later due to development of renal dysfunction while on everolimus it was switched to Xgeva injections. Because of a potential need of tooth extraction she has not received any Xgeva for a year or so. She currently has no tooth problems symptomatically. She had fairly significant thromboembolic event with extensive DVT and IVC thrombus in March 2012 and has been on anticoagulation since then with Eliquis. Will continue medical management. Proceed with Faslodex injection today at 500 mg. The next 1 scheduled in mid July. Continue Ibrance
[2019-06-21 16:32] LABS: Macrocytosis 2+
[2019-06-22 03:36] LABS: Cancer Antigen 27.29 1788.9 U/mL (0.0-38.6)
[2019-07-10 18:21] LABS: Add Manual Diff / Slide Review NO; Basophils Absolute Auto 0 /uL (0-100); Basophils Percent Auto 0.8 % (0-2); Eosinophils Absolute Auto 0 /uL (0-450); Eosinophils Percent Auto 0.9 % (2-4); Hematocrit 28.6 % (36-46); Hemoglobin 9.2 g/dL (12.0-16.0); Lymphocytes Absolute Auto 400 /uL (1100-4500); Lymphocytes Percent Auto 18.2 % (25-40); Mean Corpuscular HGB Conc 32.3 % (30-36); Mean Corpuscular Hemoglobin 34.6 PG (26-34); Mean Corpuscular Volume 107.2 fL (80-100); Monocytes Absolute Auto 400 /uL (0-900); Monocytes Percent Auto 19.2 % (3-14); Neutrophils Absolute Auto 1300 /uL (1500-7000); Neutrophils Percent Auto 60.9 % (50-75); Platelet Count 282 X10^3/uL (150-400); Red Blood Cell Count 2.67 X10^6/uL (4.0-5.2); Red Cell Distribution Width 22.4 % (11.6-14.8); White Blood Cell Count 2.1 X10^3/uL (4.5-11.0)
[2019-07-10 18:41] LABS: Anisocytosis 2+; Macrocytosis 1+; Poikilocytosis 1+; Polychromasia 1+
[2019-07-20 11:01] LABS: Add Manual Diff / Slide Review NO; Basophils Absolute Auto 100 /uL (0-100); Basophils Percent Auto 3.1 % (0-2); Eosinophils Absolute Auto 0 /uL (0-450); Eosinophils Percent Auto 0.7 % (2-4); Hematocrit 31.9 % (36-46); Hemoglobin 10.4 g/dL (12.0-16.0); Lymphocytes Absolute Auto 400 /uL (1100-4500); Lymphocytes Percent Auto 12.9 % (25-40); Mean Corpuscular HGB Conc 32.7 % (30-36); Mean Corpuscular Hemoglobin 34.4 PG (26-34); Mean Corpuscular Volume 105.1 fL (80-100); Monocytes Absolute Auto 100 /uL (0-900); Monocytes Percent Auto 3.3 % (3-14); Neutrophils Absolute Auto 2500 /uL (1500-7000); Platelet Count 586 X10^3/uL (150-400); Red Blood Cell Count 3.04 X10^6/uL (4.0-5.2); Red Cell Distribution Width 21.9 % (11.6-14.8); White Blood Cell Count 3.1 X10^3/uL (4.5-11.0)
--- NOTE | 2019-07-20 11:19 | P.PNONC_ITS ---
PN -Subjective Interval history: ID/CC: 63 year old with metastatic breast cancer History of Present Illness: This is the first time by evaluated patient. She is a transfer of care from Dr. Kaufman. I have reviewed the records Diagnosis in May 2002 presenting with right pathologic femur neck fracture. CT chest abdomen and pelvis showed a large left breast mass and bilateral adenopathy in the axilla and skeletal metastases. There were also bilateral lung lesions and hilar adenopathy, no liver metastases. Because of coexisting of the left fungating breast mass and widely metastatic disease a surgical correction of her pathologic fraction was not performed and deferred to later however it never occurred. She also has not received any radiation therapy to that location. She cannot bear any weight and is essentially wheelchair bound because of this pathologic fracture. Pathology of breast mass: Mucinous invasive ductal carcinoma, strongly ER/AR. Positive, HER2 negative. June 2012 palliative radiation to T4 to T7 and T12-L2. First line hormonal therapy with anastrozole from June 2012 to March 2014. 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 In March 2014 change of therapy to Aromasin plus everolimus. In January 2015 change of therapy to letrozole plus Ibrance due to worsening renal function and concern about everolimus contributing to it. April 2017 change of therapy to Faslodex (500 mg IM q28 d) plus continuing Ibrance 125 mg po (d1-21, q28d) due to disease progression. She has remained on this treatment since then March 2017 biopsy-proven lung metastases still ER positive, HER2 negative, a right lower lobe. Status post palliative left mastectomy. She started a new cycle of Ibrance on June 08 CT scan of chest abdomen pelvis with contrast and [facility] May 17, 2019: Stable her right upper lobe lung metastases 1.4 x 0.9 cm and right lower lobe lesion 2.9 x 2.3 cm. No new nodules. Right-sided pleural metastases with associated rib lesion mildly increased measuring 4.5 x 2.5 cm compared to 4 x 2.6 cm. Slight increase in small left pleural effusion. Right axillary adenopathy slightly increased measuring 2.6 and 1 point 5 cm respectively No liver lesion Slight increase in the right iliac expansile and destructive bone metastases measuring 9.3 x 8.1 cm compared to 8.7 x 7.1 cm previously in December 2018 Right femoral soft tissue mass associated with the right femoral head and neck with pathologic fracture similar in appearance. Multiple sclerotic lesions throughout the skeletal system. Overall this was interpreted as slight disease progression however not clinically significant enough to change therapy and she was recommended to continue on Faslodex plus Ibrance by Dr. Yordy Quinteros [facility] from May 17, 2019 showed a creatinine of 1.2 CA 15-3 of 574 Hemoglobin 9.1 white count 3 platelets 526. LFTs normal Interval History: Ibrance 125 mg daily, 3 weeks on and 10 days off. She is also getting fulvestrant 500 mg once every 4 weeks. Patient has tolerated the medications very well. Patient is wheelchair bound because of the right pathological fracture which has never been fixed. She denies any fever or chills. Denies any headache double vision or blurred vision. She denies shortness of breath or chest pain. She denies any abdominal pain diarrhea or constipation. She denies any new musculoskeletal pain. - Patient Self-Reported Symptoms SR Constitution: Fatigue/Malaise SR Musculoskeletal issues: Difficulty walking - Additional ROS All systems PM: reviewed and no additional remarkable complaints except as stated (those mentioned in HPI, Interval History and SR above.) Home Medications and Allergies Home Medications Medication Instructions Recorded Confirmed Type apixaban [Eliquis] 5 mg PO BID 06/21/19 07/20/19 History lisinopril 20 mg PO DAILY 06/21/19 07/20/19 History multivitamin 1 tab PO DAILY 06/21/19 07/20/19 History palbociclib [Ibrance] 125 mg PO DAILY 06/21/19 07/20/19 History ferrous sulfate [Iron (ferrous 325 mg PO DAILY 07/20/19 07/20/19 History sulfate)] Allergies Allergy/AdvReac Type Severity Reaction Status Date / Time bee pollen Allergy Verified 06/21/19 13:23 erythromycin base Allergy Verified 06/21/19 13:23 Exam Vital signs: 07/20/19 11:43 patient unable to stand up to get the weight. Patient also did not want to get a blood pressure done today. Narrative: ECOG 1 Constitutional: WDWN, well nourished, and well groomed. NAD. Pleasant and cooperative. HEENT: NCAT, EOMI, PERRLA. Anicteric sclera. Neck: Supple and symmetrical, no palpable masses. No palpable thyromegaly. Respiratory: No use of accessory muscles. CTAB, no wheezes. Cardiovascular: RRR, S1 and S2 normal, no M/G/R. No edema of lower extremities. Abdomen: Soft, NTND, no palpable masses. No palpable hepatosplenomegaly. No hernia. Lymphatic: no palpable palpable lymph nodes in the neck, left axillae. There is a 2 cm round node in the right axilla. Musculoskeletal: wheelchair lee Skin: No rashes, lesions, or ulcers. No induration, or subcutaneous nodules. Neurological: CN II-XII grossly intact. No sensory deficit. Wheelchair lee Psychiatric: Normal judgment and insight. AOx3. Normal memory. Anxious Results - Labs Laboratory Last Values WBC 3.1 X10^3/uL (4.5-11.0) L 07/20/19 10:37 RBC 3.04 X10^6/uL (4.0-5.2) L 07/20/19 10:37 Hgb 10.4 g/dL (12.0-16.0) L 07/20/19 10:37 Hct 31.9 % (36-46) L 07/20/19 10:37 MCV 105.1 fL (80-100) H 07/20/19 10:37 MCH 34.4 PG (26-34) H 07/20/19 10:37 MCHC 32.7 % (30-36) 07/20/19 10:37 RDW 21.9 % (11.6-14.8) H 07/20/19 10:37 Plt Count 586 X10^3/uL (150-400) H 07/20/19 10:37 Neut % (Auto) 80.0 % (50-75) H 07/20/19 10:37 Lymph % (Auto) 12.9 % (25-40) L 07/20/19 10:37 Maury % (Auto) 3.3 % (3-14) 07/20/19 10:37 Eos % (Auto) 0.7 % (2-4) L 07/20/19 10:37 Baso % (Auto) 3.1 % (0-2) H 07/20/19 10:37 Neut # (Auto) 2500 /uL (8348-7078) 07/20/19 10:37 Lymph # (Auto) 400 /uL (9076-5621) L 07/20/19 10:37 Maury # (Auto) 100 /uL (0-900) 07/20/19 10:37 Eos # (Auto) 0 /uL (0-450) 07/20/19 10:37 Baso # (Auto) 100 /uL (0-100) 07/20/19 10:37 RBC Morphology See below 07/20/19 10:37 Polychromasia 1+ H 07/10/19 17:57 Poikilocytosis 1+ H 07/10/19 17:57 Anisocytosis 2+ H 07/20/19 10:37 Macrocytosis 1+ H 07/20/19 10:37 Sodium 143 mmol/L (137-145) 07/20/19 10:37 Potassium 4.2 mmol/L (3.4-5.1) 07/20/19 10:37 Chloride 108 mmol/L (98-107) H 07/20/19 10:37 Carbon Dioxide 26 mmol/L (22-32) 07/20/19 10:37 BUN 21 mg/dL (7-17) H 07/20/19 10:37 Creatinine 1.18 mg/dL (0.52-1.04) H 07/20/19 10:37 Estimated GFR 46.1 mL/min (>60) L 07/20/19 10:37 BUN/Creatinine Ratio 17.8 (6-22) 07/20/19 10:37 Glucose 110 mg/dL (80-110) 07/20/19 10:37 Calcium 10.3 mg/dL (8.4-10.2) H 07/20/19 10:37 Total Bilirubin 0.4 mg/dL (0.2-1.3) 07/20/19 10:37 AST 36 IU/L (14-36) 07/20/19 10:37 ALT 11 IU/L (<35) 07/20/19 10:37 Alkaline Phosphatase 66 U/L (38-126) 07/20/19 10:37 Total Protein 8.8 g/dL (6.3-8.2) H 07/20/19 10:37 Albumin 4.5 g/dL (3.5-5.0) 07/20/19 10:37 Globulin 4.3 g/dL (1.7-4.1) H 07/20/19 10:37 Albumin/Globulin Ratio 1.0 (1.0-2.8) 07/20/19 10:37 CA 15-3 Antigen 1873.0 U/mL (0.0-25.0) H 06/21/19 14:50 CA 27-29 1788.9 U/mL (0.0-38.6) H 06/21/19 14:50 Assessment and Plan (1) Breast cancer Overview: 63-year-old lady with low-grade 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 Unfortunately she presented with widespread metastatic disease to the skeletal system, pathologic fracture of the right femur and fungating mass in the left breast in early 2012 as initial presentation. Her disease has been managed at [facility] by Dr. Scales. She is wheelchair bound and cannot bear any weight on the right side due to the pathologic fracture which unfortunately was not surgically corrected due to the widespread metastatic disease. She would have required a hip replacement. She has not received any radiation to the right femur and does not have much of pain currently in that area. She has undergone palliative left mastectomy and pleurodesis as well as pericardial window. The thoracic and upper lumbar spine has received palliative radiation at initial diagnosis in 2012 (T4-T7, T12-L2). She has had good disease control for 7 years now on multiple lines of hormonal therapy and other biologic oral agents as outlined above without usage of any ch emotherapy. She has been exposed anastrozole, then Aromasin plus everolimus, then letrozole plus Ibrance and most recently Faslodex injections plus Ibrance which has been ongoing since April 2017. fShe has some cytopenias due to Ibrance which is given at full dose of 125 mg p.o. daily, 3 weeks on, 10 days off. Her Faslodex injection is also at standard dose of 500 mg every 4 weeks IM. Recent imaging in form of CT chest abdomen and pelvis with contrast of May 2019 at [facility] reviewed and summarized above showing slight progression of her limited lung metastases and right hilar and axillary adenopathy and slight progression of the expansile bony lesion in the right hip. However the measurements show only mild increase compared to December 2018 and therefore no change in therapy was warranted. She was started on Zometa for bone support since July 2012 but later due to development of renal dysfunction while on everolimus it was switched to Xgeva injections. Because of a potential need of tooth extraction she has not received any Xgeva for a year or so. She currently has no tooth problems symptomatically. Assessment Patient has tolerated the current treatment with Faslodex and Ibrance well. I reviewed lab results with the patient the white cell count slightly decreased which is expected with the use of Ibrance. Hemoglobin level has improved to above 10. Patient's platelet count remained stable. Electrolytes are unremarkable. I talked with her that I will continue current treatment without any changes. She voiced understanding. As far as anxiety concerned, she would like to talk with Diana our long term care social worker about role of acupuncture. I talked with her that I supported her decision. Plan: 1. Ok to proceed with Faslodex injection at 500 mg. 2. Continue Ibrance 125 mg daily, 3 weeks, 10 days off. 3. RTC in one month, labs per protocol. (2) VTE (venous thromboembolism) She had fairly significant thromboembolic event with extensive DVT and IVC thrombus in March 2012 and has been on anticoagulation since then with Eliquis.
[2019-07-20 11:30] LABS: Alanine Aminotransferase 11 IU/L (<35); Albumin 4.5 g/dL (3.5-5.0); Alkaline Phosphatase 66 U/L (38-126); Aspartate Aminotransferase 36 IU/L (14-36); BUN Creatinine Ratio 17.8 (6-22); Bilirubin Total 0.4 mg/dL (0.2-1.3); Blood Urea Nitrogen 21 mg/dL (7-17); Calcium 10.3 mg/dL (8.4-10.2); Carbon Dioxide 26 mmol/L (22-32); Chloride 108 mmol/L (98-107); Estimated Glomerular Filt Rate 46.1 mL/min (>60); Globulin 4.3 g/dL (1.7-4.1); Glucose 110 mg/dL (80-110); HEMOLYSIS < 15 (0-50); Potassium 4.2 mmol/L (3.4-5.1); Sodium 143 mmol/L (137-145); Total Protein 8.8 g/dL (6.3-8.2)
[2019-07-20 11:50] LABS: Anisocytosis 2+; Macrocytosis 1+
[2019-07-20] MEDS: FULVESTRANT 250 MG/5 ML SYR 500 MG IM (11:52)
[2019-07-21 01:52] LABS: Cancer Antigen 27.29 1890.6 U/mL (0.0-38.6)
--- NOTE | 2019-07-25 09:55 | ONC.SCHED ---
Patient approved for Ibrance. Scanned PA. Approval good through 07/23/22.
--- NOTE | 2019-07-26 10:32 | PC.NURSE ---
[facility]RANCE RX WAS COMMUNICATED VERBALLY TO PHARMACIST AT [facility] TODAY AT [phone]. RX WAS HANDWRITTEN BY DR RASHEED FOR IBRANCE TABLETS 125MG #21, PATIENT TO TAKE 125MG PO DAILY, 3 WKS ON, 1 WK OFF. PHARMACIST VERIFIED PA FOR TABLETS IS VALID AT TIME OF THIS CALL AND IS VALID UNTIL 07/23/22 AND THAT PATIENT WILL HAVE A COPAY OF $20. PATIENT WAS INFORMED YESTERDAY BY TEL BY THIS NURSE THAT THIS RX WILL BE SUBMITTED. RX GIVEN FOR SCAN TO CHART ROOM.
--- NOTE | 2019-07-27 12:02 | ONC.SCHED ---
Per ARM ~ Jagjit Stone: Fulvestrant no PA requried: ref# [id number] Abby spoke with Alcides Hart
--- NOTE | 2019-08-01 16:28 | PC.NURSE ---
[facility] to [facility].
[2019-08-09 18:04] LABS: Add Manual Diff / Slide Review NO; Basophils Absolute Auto 0 /uL (0-100); Basophils Percent Auto 0.7 % (0-2); Eosinophils Absolute Auto 0 /uL (0-450); Eosinophils Percent Auto 0.8 % (2-4); Hematocrit 30.1 % (36-46); Hemoglobin 9.9 g/dL (12.0-16.0); Lymphocytes Absolute Auto 400 /uL (1100-4500); Mean Corpuscular HGB Conc 32.8 % (30-36); Mean Corpuscular Hemoglobin 34.9 PG (26-34); Mean Corpuscular Volume 106.2 fL (80-100); Monocytes Absolute Auto 400 /uL (0-900); Monocytes Percent Auto 17.3 % (3-14); Neutrophils Absolute Auto 1700 /uL (1500-7000); Neutrophils Percent Auto 64.2 % (50-75); Platelet Count 297 X10^3/uL (150-400); Red Blood Cell Count 2.83 X10^6/uL (4.0-5.2); Red Cell Distribution Width 22.4 % (11.6-14.8); White Blood Cell Count 2.6 X10^3/uL (4.5-11.0)
[2019-08-09 18:15] LABS: Alanine Aminotransferase 12 IU/L (<35); Albumin 4.2 g/dL (3.5-5.0); Albumin Globulin Ratio 1.1 (1.0-2.8); Alkaline Phosphatase 54 U/L (38-126); Aspartate Aminotransferase 32 IU/L (14-36); BUN Creatinine Ratio 21.9 (6-22); Bilirubin Total 0.3 mg/dL (0.2-1.3); Blood Urea Nitrogen 25 mg/dL (7-17); Calcium 10.2 mg/dL (8.4-10.2); Carbon Dioxide 29 mmol/L (22-32); Chloride 105 mmol/L (98-107); Glucose 106 mg/dL (80-110); HEMOLYSIS < 15 (0-50); Potassium 4.1 mmol/L (3.4-5.1); Sodium 145 mmol/L (137-145); Total Protein 8.2 g/dL (6.3-8.2)
[2019-08-09 18:49] LABS: Anisocytosis 2+; Macrocytosis 1+
[2019-08-17 13:22] LABS: Add Manual Diff / Slide Review NO; Basophils Absolute Auto 100 /uL (0-100); Eosinophils Absolute Auto 100 /uL (0-450); Eosinophils Percent Auto 1.1 % (2-4); Hematocrit 31.2 % (36-46); Hemoglobin 10.2 g/dL (12.0-16.0); Lymphocytes Absolute Auto 500 /uL (1100-4500); Lymphocytes Percent Auto 10.2 % (25-40); Mean Corpuscular HGB Conc 32.8 % (30-36); Mean Corpuscular Hemoglobin 34.5 PG (26-34); Monocytes Absolute Auto 200 /uL (0-900); Neutrophils Absolute Auto 3800 /uL (1500-7000); Neutrophils Percent Auto 81.7 % (50-75); Platelet Count 631 X10^3/uL (150-400); Red Blood Cell Count 2.97 X10^6/uL (4.0-5.2); White Blood Cell Count 4.6 X10^3/uL (4.5-11.0)
--- NOTE | 2019-08-17 13:31 | P.PNONC_ITS ---
PN -Subjective Interval history: ID/CC: 63 year old with metastatic breast cancer History of Present Illness: This is the first time by evaluated patient. She is a transfer of care from Dr. Kaufman. I have reviewed the records Diagnosis in May 2002 presenting with right pathologic femur neck fracture. CT chest abdomen and pelvis showed a large left breast mass and bilateral adenopathy in the axilla and skeletal metastases. There were also bilateral lung lesions and hilar adenopathy, no liver metastases. Because of coexisting of the left fungating breast mass and widely metastatic disease a surgical correction of her pathologic fraction was not performed and deferred to later however it never occurred. She also has not received any radiation therapy to that location. She cannot bear any weight and is essentially wheelchair bound because of this pathologic fracture. Pathology of breast mass: Mucinous invasive ductal carcinoma, strongly ER/AK. Positive, HER2 negative. June 2012 palliative radiation to T4 to T7 and T12-L2. First line hormonal therapy with anastrozole from June 2012 to March 2014. 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 In March 2014 change of therapy to Aromasin plus everolimus. In January 2015 change of therapy to letrozole plus Ibrance due to worsening renal function and concern about everolimus contributing to it. April 2017 change of therapy to Faslodex (500 mg IM q28 d) plus continuing Ibrance 125 mg po (d1-21, q28d) due to disease progression. She has remained on this treatment since then March 2017 biopsy-proven lung metastases still ER positive, HER2 negative, a right lower lobe. Status post palliative left mastectomy. She started a new cycle of Ibrance on June 08 CT scan of chest abdomen pelvis with contrast and [facility] May 17, 2019: Stable her right upper lobe lung metastases 1.4 x 0.9 cm and right lower lobe lesion 2.9 x 2.3 cm. No new nodules. Right-sided pleural metastases with associated rib lesion mildly increased measuring 4.5 x 2.5 cm compared to 4 x 2.6 cm. Slight increase in small left pleural effusion. Right axillary adenopathy slightly increased measuring 2.6 and 1 point 5 cm respectively No liver lesion Slight increase in the right iliac expansile and destructive bone metastases measuring 9.3 x 8.1 cm compared to 8.7 x 7.1 cm previously in December 2018 Right femoral soft tissue mass associated with the right femoral head and neck with pathologic fracture similar in appearance. Multiple sclerotic lesions throughout the skeletal system. Overall this was interpreted as slight disease progression however not clinically significant enough to change therapy and she was recommended to continue on Faslodex plus Ibrance by Dr. Scales Labs [facility] from May 17, 2019 showed a creatinine of 1.2 CA 15-3 of 574 Hemoglobin 9.1 white count 3 platelets 526. LFTs normal Interval History: Ibrance 125 mg daily, 3 weeks on and 10 days off. She is also getting fulvestrant 500 mg once every 4 weeks. Patient has tolerated the medications very well. Patient is wheelchair bound because of the right pathological fracture which has never been fixed. She denies any fever or chills. Denies any headache double vision or blurred vision. She denies shortness of breath or chest pain. She denies any abdominal pain diarrhea or constipation. Today, she is complaining sternum pain which she attributed to mattress. She is also reporting significant anxiety. - Patient Self-Reported Symptoms SR Constitution: Fatigue/Malaise SR Musculoskeletal issues: Difficulty walking - Additional ROS All systems PM: reviewed and no additional remarkable complaints except as stated (Those mentioned in HIstory of Present Illness, Interval History and Patient Self-Reported Symptoms.) Home Medications and Allergies Home Medications Medication Instructions Recorded Confirmed Type apixaban [Eliquis] 5 mg PO BID 06/21/19 07/20/19 History lisinopril 20 mg PO DAILY 06/21/19 07/20/19 History multivitamin 1 tab PO DAILY 06/21/19 07/20/19 History ferrous sulfate [Iron (ferrous 325 mg PO DAILY 07/20/19 07/20/19 History sulfate)] palbociclib [Ibrance] 125 mg PO DAILY #21 cap 08/01/19 Rx lorazepam [Ativan] 0.5 mg PO TID PRN #20 tab 08/17/19 Rx Allergies Allergy/AdvReac Type Severity Reaction Status Date / Time bee pollen Allergy Verified 06/21/19 13:23 erythromycin base Allergy Verified 06/21/19 13:23 Exam Narrative: ECOG 1 Constitutional: WDWN, well nourished, and well groomed. NAD. Pleasant and cooperative. HEENT: NCAT, EOMI, PERRLA. Anicteric sclera. Neck: Supple and symmetrical, no palpable masses. No palpable thyromegaly. Respiratory: No use of accessory muscles. CTAB, no wheezes. Cardiovascular: RRR, S1 and S2 normal, no M/G/R. No edema of lower extremities. Abdomen: Soft, NTND, no palpable masses. No palpable hepatosplenomegaly. No hernia. Lymphatic: no palpable palpable lymph nodes in the neck, left axillae. There is a 2 cm round node in the right axilla. Musculoskeletal: wheelchair lee Skin: No rashes, lesions, or ulcers. No induration, or subcutaneous nodules. Neurological: CN II-XII grossly intact. No sensory deficit. Wheelchair lee Psychiatric: Normal judgment and insight. AOx3. Normal memory. Anxious Results - Labs Laboratory Last Values WBC 4.6 X10^3/uL (4.5-11.0) 08/17/19 13:15 RBC 2.97 X10^6/uL (4.0-5.2) L 08/17/19 13:15 Hgb 10.2 g/dL (12.0-16.0) L 08/17/19 13:15 Hct 31.2 % (36-46) L 08/17/19 13:15 MCV 105.0 fL (80-100) H 08/17/19 13:15 MCH 34.5 PG (26-34) H 08/17/19 13:15 MCHC 32.8 % (30-36) 08/17/19 13:15 RDW 21.0 % (11.6-14.8) H 08/17/19 13:15 Plt Count 631 X10^3/uL (150-400) H 08/17/19 13:15 Neut % (Auto) 81.7 % (50-75) H 08/17/19 13:15 Lymph % (Auto) 10.2 % (25-40) L 08/17/19 13:15 [place] % (Auto) 4.0 % (3-14) 08/17/19 13:15 Eos % (Auto) 1.1 % (2-4) L 08/17/19 13:15 Baso % (Auto) 3.0 % (0-2) H 08/17/19 13:15 Neut # (Auto) 3800 /uL (2530-5686) 08/17/19 13:15 Lymph # (Auto) 500 /uL (6283-4796) L 08/17/19 13:15 [place] # (Auto) 200 /uL (0-900) 08/17/19 13:15 Eos # (Auto) 100 /uL (0-450) 08/17/19 13:15 Baso # (Auto) 100 /uL (0-100) 08/17/19 13:15 RBC Morphology See below 08/09/19 17:53 Polychromasia 1+ H 07/10/19 17:57 Poikilocytosis 1+ H 07/10/19 17:57 Anisocytosis 2+ H 08/09/19 17:53 Macrocytosis 1+ H 08/09/19 17:53 Sodium 145 mmol/L (137-145) 08/09/19 17:53 Potassium 4.1 mmol/L (3.4-5.1) 08/09/19 17:53 Chloride 105 mmol/L (98-107) 08/09/19 17:53 Carbon Dioxide 29 mmol/L (22-32) 08/09/19 17:53 BUN 25 mg/dL (7-17) H 08/09/19 17:53 Creatinine 1.14 mg/dL (0.52-1.04) H 08/09/19 17:53 Estimated GFR 48.0 mL/min (>60) L 08/09/19 17:53 BUN/Creatinine Ratio 21.9 (6-22) 08/09/19 17:53 Glucose 106 mg/dL (80-110) 08/09/19 17:53 Calcium 10.2 mg/dL (8.4-10.2) 08/09/19 17:53 Total Bilirubin 0.3 mg/dL (0.2-1.3) 08/09/19 17:53 AST 32 IU/L (14-36) 08/09/19 17:53 ALT 12 IU/L (<35) 08/09/19 17:53 Alkaline Phosphatase 54 U/L (38-126) 08/09/19 17:53 Total Protein 8.2 g/dL (6.3-8.2) 08/09/19 17:53 Albumin 4.2 g/dL (3.5-5.0) 08/09/19 17:53 Globulin 4.0 g/dL (1.7-4.1) 08/09/19 17:53 Albumin/Globulin Ratio 1.1 (1.0-2.8) 08/09/19 17:53 CA 15-3 Antigen 1873.0 U/mL (0.0-25.0) H 06/21/19 14:50 CA 27-29 1890.6 U/mL (0.0-38.6) H 07/20/19 10:37 Assessment and Plan (1) Breast cancer Overview: 63-year-old lady with low-grade 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 Unfortunately she presented with widespread metastatic disease to the skeletal system, pathologic fracture of the right femur and fungating mass in the left breast in early 2012 as initial presentation. Her disease has been managed at [facility] by Dr. Scales. She is wheelchair bound and cannot bear any weight on the right side due to the pathologic fracture which unfortunately was not surgically corrected due to the widespread metastatic disease. She would have required a hip replacement. She has not received any radiation to the right femur and does not have much of pain currently in that area. She has undergone palliative left mastectomy and pleurodesis as well as pericardial window. The thoracic and upper lumbar spine has received palliative radiation at initial diagnosis in 2012 (T4-T7, T12-L2). She has had good disease control for 7 years now on multiple lines of hormonal therapy and other biologic oral agents as outlined above without usage of any chemotherapy. She has been exposed anastrozole, then Aromasin plus everolimus, then letrozole plus Ibrance and most recently Faslodex injections plus Ibrance which has been ongoing since April 2017. She has some cytopenias due to Ibrance which is given at full dose of 125 mg p.o. daily, 3 weeks on, 10 days off. Her Faslodex injection is also at standard dose of 500 mg every 4 weeks IM. Recent imaging in form of CT chest abdomen and pelvis with contrast of May 2019 at [facility] reviewed showing slight progression of her limited lung metastases and right hilar and axillary adenopathy and slight progression of the expansile bony lesion in the right hip. However the measurements show only mild increase compared to December 2018 and therefore no change in therapy was warranted. She was started on Zometa for bone support since July 2012 but later due to development of renal dysfunction while on everolimus it was switched to Xgeva injections. Because of a potential need of tooth extraction she has not received any Xgeva for a year or so. She currently has no tooth problems symptomatically. Assessment Patient has not had any repeat scans for the past 3 months. Given the new onset of sternum pain, I recommended we obtain a CT of the chest abdomen pelvis for further evaluation. As far as the severe anxiety is concerned, I will try Ativan 0.5 mg t.i.d. on as needed basis. I will see the patient in about 1 month. Plan: 1. Ok to proceed with Faslodex injection at 500 mg. 2. Continue Ibrance 125 mg daily, 3 weeks, [address] CAP with contrast 4. Add CA 15-3, CA 27-29 to blood sample today 5. RTC in one month, labs per protocol, need to review CT scan. (2) VTE (venous thromboembolism) She had fairly significant thromboembolic event with extensive DVT and IVC thrombus in March 2012 and has been on anticoagulation since then with Eliquis.
[2019-08-17 13:34] LABS: Alanine Aminotransferase 11 IU/L (<35); Albumin 4.1 g/dL (3.5-5.0); Alkaline Phosphatase 59 U/L (38-126); Aspartate Aminotransferase 32 IU/L (14-36); BUN Creatinine Ratio 22.3 (6-22); Bilirubin Total 0.3 mg/dL (0.2-1.3); Blood Urea Nitrogen 25 mg/dL (7-17); Calcium 10.3 mg/dL (8.4-10.2); Carbon Dioxide 23 mmol/L (22-32); Chloride 109 mmol/L (98-107); Globulin 4.1 g/dL (1.7-4.1); Glucose 111 mg/dL (80-110); HEMOLYSIS < 15 (0-50); Potassium 4.2 mmol/L (3.4-5.1); Sodium 142 mmol/L (137-145); Total Protein 8.2 g/dL (6.3-8.2)
[2019-08-17 13:44] LABS: Anisocytosis 2+
[2019-08-17] MEDS: FULVESTRANT 250 MG/5 ML SYR 500 MG IM (14:23)
[2019-08-18 03:36] LABS: Cancer Antigen 27.29 1777.1 U/mL (0.0-38.6)
[2019-09-14 10:01] LABS: Add Manual Diff / Slide Review NO; Basophils Absolute Auto 100 /uL (0-100); Basophils Percent Auto 1.7 % (0-2); Eosinophils Absolute Auto 0 /uL (0-450); Eosinophils Percent Auto 1.2 % (2-4); Hematocrit 30.9 % (36-46); Hemoglobin 10.2 g/dL (12.0-16.0); Lymphocytes Absolute Auto 500 /uL (1100-4500); Lymphocytes Percent Auto 14.1 % (25-40); Mean Corpuscular Hemoglobin 34.6 PG (26-34); Mean Corpuscular Volume 104.9 fL (80-100); Monocytes Absolute Auto 300 /uL (0-900); Monocytes Percent Auto 7.5 % (3-14); Neutrophils Absolute Auto 2900 /uL (1500-7000); Neutrophils Percent Auto 75.5 % (50-75); Platelet Count 494 X10^3/uL (150-400); Red Blood Cell Count 2.94 X10^6/uL (4.0-5.2); Red Cell Distribution Width 20.1 % (11.6-14.8); White Blood Cell Count 3.8 X10^3/uL (4.5-11.0)
[2019-09-14 10:13] LABS: Alanine Aminotransferase 10 IU/L (<35); Albumin 4.1 g/dL (3.5-5.0); Alkaline Phosphatase 62 U/L (38-126); Aspartate Aminotransferase 35 IU/L (14-36); BUN Creatinine Ratio 15.5 (6-22); Bilirubin Total 0.3 mg/dL (0.2-1.3); Blood Urea Nitrogen 18 mg/dL (7-17); Calcium 10.2 mg/dL (8.4-10.2); Carbon Dioxide 27 mmol/L (22-32); Chloride 109 mmol/L (98-107); Globulin 4.2 g/dL (1.7-4.1); Glucose 101 mg/dL (80-110); HEMOLYSIS < 15 (0-50); Sodium 142 mmol/L (137-145); Total Protein 8.3 g/dL (6.3-8.2)
[2019-09-14 10:29] LABS: Anisocytosis 1+; Macrocytosis 1+
[2019-09-14 10:30] LABS: Polychromasia 1+
[2019-09-14] MEDS: FULVESTRANT 250 MG/5 ML SYR 500 MG IM (11:50)
[2019-09-15 02:07] LABS: Cancer Antigen 27.29 1810.1 U/mL (0.0-38.6)
--- NOTE | 2019-10-23 14:55 | PC.NURSE ---
Pt did not come in for CT or f/u apt. Called and left message. Unable to get ahold of patient. Have a note in to Dr. Fernández to review Pt's labs and to advise on urgency of getting patient scheduled. Awaiting response from Dr. Fernández.
--- NOTE | 2019-10-24 15:30 | ONC.SCHED ---
Patient called regarding missed appointment. She still had not done the CT scan. She stated she is talking with radiology regarding covid precautions and the CT scan. She stated that she got a message that she had a hard time understanding and that she thought her appointment was for the 25th. Because there are no orders in the system, I transferred her to triage to facilitate orders.
--- NOTE | 2019-10-25 13:26 | PC.NURSE ---
PATIENT MISSED APPT ON 10/23/2019. AWAITING CALL BACK FROM PATIENT TO LET HER KNOW DR RASHEED WANTS HER TO RESCHEDULE HER CT WHICH SHE HAD CANCELLED AND THEN A F/U WITH HIM. IT IS APPROVED THROUGH JANUARY BY HER INSURANCE. SHE NEEDS TO CALL DI AND RESCHEDULE. NO ORDERS IN FOR FULVESTRANT THIS MONTH. REQUEST WITH THIS NOTE TO DR RASHEED TO PUT IN ORDERS AND PATIENT THEN NEEDS TO BE SCHEDULED.
--- NOTE | 2019-10-30 16:27 | PC.NURSE ---
CALLED PATIENT AND LEFT MESSAGE REQUESTING HER TO CALL BACK AND SPEAK WITH SCHEDULING. SCHEDULING INFORMED WITH THIS NOTE THAT PATIENT PER DR RASHEED IS TO CALL DI AND RESCHEDULE HER CT. AUTHORIZATION VALID THROUGH JANUARY. SHE SHOULD THEN BE SCHEDULED FOR F/U. SHE SHOULD RECEIVE HER FULVESTRANT LUTHER, IRRELEVANT OF CT OR F/U.
--- NOTE | 2019-11-13 13:02 | ONC.SCHED ---
Spoke with patient today and scheduled her fulvestrant injection per her request. Advised patient she needed to reschedule her CT exam and call us back with the date so we may schedule her for a provider follow up visit.
[2019-11-16 13:48] VITALS: PULSE 108; RESP 17; TEMP 37; O2SAT 99
--- NOTE | 2019-11-16 13:51 | PC.NURSE ---
Patient refusing blood pressure. Patient here today for faslodex injection. Patient appearing frustrated and anxious due to a miscommunication between [facility] and patient per patient report.
[2019-11-16] MEDS: FULVESTRANT 250 MG/5 ML SYR 500 MG IM (14:11)
--- NOTE | 2019-11-16 14:34 | ONC.SCHED ---
At check-out I reiterated the need for patient to get her CT scan. Offered to call over to get it scheduled and she stated she'd call when she gets home. Dr. Fernández's availability didn't allow for follow-up on schedule, so I offered to switch her to Dr. Coronado. She accepted and is scheduled with Dr. Coronado.
--- NOTE | 2019-11-16 14:38 | PC.NURSE ---
Pt expressed frustration r/t miscommunication r/t to scheduling and previous missed appt. Listen to pt voice concerns. Created clear plan with pt moving forward r/t Sept appt. Pt aware of Sept lab orders, provider appt order and injection. Pt further explains she has not called DI to schedule ordered CT, but states I will do that today. Guided pt to scheduling after her injection so she could schedule times for next appt, pt states thank you so much.
--- NOTE | 2020-01-22 17:44 | ONC.SCHED ---
Left msg. on home and cell for patient to call back to schedule. Left a generic msg. due to VM, looks like patient needs to come for labs prior, injection, and follow up. This was given to me by Phillip.
--- NOTE | 2020-01-29 13:42 | PC.NURSE ---
Called and left message, pt was a no show last appointment. 01/25/20
[2020-02-12 16:59] LABS: Add Manual Diff / Slide Review NO; Basophils Absolute Auto 100 /uL (0-100); Eosinophils Absolute Auto 0 /uL (0-450); Eosinophils Percent Auto 0.9 % (2-4); Hematocrit 29.3 % (36-46); Hemoglobin 9.5 g/dL (12.0-16.0); Lymphocytes Absolute Auto 400 /uL (1100-4500); Mean Corpuscular HGB Conc 32.5 % (30-36); Mean Corpuscular Hemoglobin 34.7 PG (26-34); Mean Corpuscular Volume 106.9 fL (80-100); Monocytes Absolute Auto 300 /uL (0-900); Monocytes Percent Auto 14.1 % (3-14); Neutrophils Absolute Auto 1500 /uL (1500-7000); Platelet Count 333 X10^3/uL (150-400); Red Blood Cell Count 2.74 X10^6/uL (4.0-5.2); Red Cell Distribution Width 22.6 % (11.6-14.8); White Blood Cell Count 2.3 X10^3/uL (4.5-11.0)
[2020-02-12 17:23] LABS: Anisocytosis 2+; Macrocytosis 2+; Poikilocytosis 1+; Polychromasia 1+
[2020-02-12 17:30] LABS: Alanine Aminotransferase 9 IU/L (<35); Alkaline Phosphatase 56 U/L (38-126); Aspartate Aminotransferase 38 IU/L (14-36); BUN Creatinine Ratio 16.8 (6-22); Bilirubin Total 0.3 mg/dL (0.2-1.3); Blood Urea Nitrogen 17 mg/dL (7-17); Calcium 9.8 mg/dL (8.4-10.2); Carbon Dioxide 30 mmol/L (22-32); Chloride 108 mmol/L (98-107); Glucose 94 mg/dL (80-110); HEMOLYSIS < 15 (0-50); Potassium 3.6 mmol/L (3.4-5.1); Sodium 143 mmol/L (137-145)
[2020-02-13 05:10] LABS: Cancer Antigen 27.29 2118.6 U/mL (0.0-38.6)
--- NOTE | 2020-02-13 16:11 | ONC.SCHED ---
Called patient 4 times and left 4 messages, 02/04, 02/06, 02/11, and 02/12, trying to schedule her to see Dr. Fernández. He wants to see her before she has any more labs done or injections.
[2020-03-14 16:21] LABS: Alanine Aminotransferase 9 IU/L (<35); Albumin 3.8 g/dL (3.5-5.0); Alkaline Phosphatase 56 U/L (38-126); Aspartate Aminotransferase 34 IU/L (14-36); BUN Creatinine Ratio 15.2 (6-22); Bilirubin Total 0.3 mg/dL (0.2-1.3); Blood Urea Nitrogen 15 mg/dL (7-17); Carbon Dioxide 31 mmol/L (22-32); Chloride 108 mmol/L (98-107); Estimated Glomerular Filt Rate 56.3 mL/min (>60); Glucose 85 mg/dL (80-110); HEMOLYSIS < 15 (0-50); Potassium 3.7 mmol/L (3.4-5.1); Sodium 141 mmol/L (137-145); Total Protein 7.8 g/dL (6.3-8.2)
--- NOTE | 2020-04-11 12:00 | ONC.SCHED ---
Left msg. for patient regarding Elicaroleis auth that we received to renew for patient. In talking with Lori we are not the prescribing doctor on this medication. I can also try calling the number on the auth request to let them know as well.
--- NOTE | 2020-04-22 09:46 | PC.NURSE ---
Pt had lab work done 04/18/20, her PCP called to make sure we were aware of an increase in her CA15-3, pt was a no show for last appointment. Called pt to see when they can come in for Tx and f/u, no answer. Left message.
--- NOTE | 2020-05-01 15:09 | PC.NURSE ---
TUMOR MARKERS: [facility] MADE CONTACT WITH TRIAGE SINCE THEY HAD RECEIVED LAB RESULTS AND WANTED TO BE SURE THAT WE AND PATIENT WERE AWARE. THIS NURSE LEFT MESSAGE ON CELL AND HOME PHONE OF PATIENT ASKING HER TO CALL BACK.
--- NOTE | 2020-05-08 15:40 | PC.NURSE ---
IBRANCE: [facility] SENT NOTICE THAT THEY ARE NOT ABLE TO REACH PATIENT AND HAVE PUT IBRANCE ON HOLD. THIS NURSE ATTEMPTED TO REACH PATIENT AT ALL 3 PHONE NUMBERS IN CHART AND LEFT A MESSAGE AT ALL NUMBERS FOR PATIENT TO RETURN A CALL TO TRIAGE.
--- NOTE | 2020-06-04 11:29 | PC.NURSE ---
Addendum entered by Phillip Everett R.N. 06/18/20 11:12: Dr. Rasheed would like to see patient before Ibrance order is signed to discuss Tx and abnormal labs. Addendum entered by Phillip Everett R.N. 06/10/20 14:58: Called Pt to discuss recent abnormal labs from 05/22/20, pt did not answer left a message. Original Note: REFILL RE[facility] C[facility] FOR THIS PATIENT WHO WAS LAST SEEN BY DR RASHEED ON 08/17/19. MULTIPLE ATTEMPTS HAVE BEEN MADE OVER THE LAST HALF YEAR TO CONTACT PATIENT PER LAB RESULTS, MISSED APPTS, SCHEDULED INJECTIONS. SHE HAS NOT RESPONDED OF TODAY. ON 05/08 [facility] WROTE THAT THEY HAD PUT IBRANCE ON HOLD THEY COULD NOT REACH THE PATIENT. FYI WITH THIS NOTE TO DR RASHEED.
--- NOTE | 2020-06-18 15:01 | ONC.SCHED ---
Left message for patient to call to see Dr. Fernández on 06/24/20 if appointment is still available.
--- NOTE | 2020-06-18 15:05 | ONC.SCHED ---
Called patient's spouse, Tomas, (listed on the Authorization to Discuss) to try to reach patient to get her scheduled. Introduced myself and from where I was was calling and he hung up.
--- NOTE | 2020-06-18 16:08 | ONC.SCHED ---
Patient returned call and was agreeable to an appointment on 06/24/20. She wanted to know if she had gotten her prescription. I informed her that I wasn't able to help with prescriptions, but that I could get her an appointment with Dr. Fernández for 06/24/20. She was frustrated. I told her I could transfer her to our triage nurse to discuss the prescription. Ultimately, she agreed to be transferred and I did so.
--- NOTE | 2020-06-19 09:25 | PC.NURSE ---
THIS NURSE RECEIVED MESSAGE FROM INFRASTRUCTURE ANALYST Sonali DAVIES THAT PATIENT HAD LEFT MESSAGE FOR HER AROUND 5 PM ON 06/18/20 ASKING WHY HER PRESCRIPTION CAN NOT BE FILLED. THIS NURSE CALLED PATIENT AND LEFT MESSAGE THAT DR RASHEED WILL TAKE CARE OF PRESCRIPTION FILLING WITH HER ON 06/24 VISIT.
--- NOTE | 2020-06-24 15:59 | ONC.SCHED ---
patient left voice mail today regarding rescheduling with Dr Fernández due to injuring her leg recently, I called back and left a voice mail so she could call us again and get back on his schedule
--- NOTE | 2020-11-20 11:16 | ONC.MSW ---
*Sent bereavement card.
== END ==
PROVIDERS: Internal Medicine; Internal Medicine Hematology & Oncology; PCP Internal Medicine Medical Oncology; Referring Provider Internal Medicine Medical Oncology; Visit Provider Internal Medicine Hematology & Oncology
DX: C50.912 Malignant neoplasm of unspecified site of left female breast (principal); C78.01 Secondary malignant neoplasm of right lung; C79.51 Secondary malignant neoplasm of bone; C78.2 Secondary malignant neoplasm of pleura; Z17.0 Estrogen receptor positive status [ER+]
CPT/HCPCS: 36415; 80053; 85025; 86300; 96372; 96401; 96402; 99205; 99214; 99215; J9395

== ENCOUNTER → 2020-05-22 16:08 | Outpatient (CLI) | payer OTHER, SELFPAY ==
[2020-05-22 17:07] LABS: Add Manual Diff / Slide Review NO; Basophils Absolute Auto 200 /uL (0-100); Basophils Percent Auto 3.3 % (0-2); Eosinophils Absolute Auto 0 /uL (0-450); Eosinophils Percent Auto 0.7 % (2-4); Hematocrit 29.6 % (36-46); Hemoglobin 9.5 g/dL (12.0-16.0); Lymphocytes Absolute Auto 400 /uL (1100-4500); Lymphocytes Percent Auto 8.7 % (25-40); Mean Corpuscular HGB Conc 32.2 % (30-36); Mean Corpuscular Hemoglobin 34.1 PG (26-34); Mean Corpuscular Volume 105.9 fL (80-100); Monocytes Absolute Auto 200 /uL (0-900); Monocytes Percent Auto 3.8 % (3-14); Neutrophils Absolute Auto 4000 /uL (1500-7000); Neutrophils Percent Auto 83.5 % (50-75); Platelet Count 706 X10^3/uL (150-400); Red Blood Cell Count 2.79 X10^6/uL (4.0-5.2); Red Cell Distribution Width 22.3 % (11.6-14.8); White Blood Cell Count 4.8 X10^3/uL (4.5-11.0)
[2020-05-22 17:32] LABS: Alanine Aminotransferase 10 IU/L (<35); Albumin 3.6 g/dL (3.5-5.0); Alkaline Phosphatase 63 U/L (38-126); Aspartate Aminotransferase 35 IU/L (14-36); BUN Creatinine Ratio 17.6 (6-22); Bilirubin Total 0.3 mg/dL (0.2-1.3); Blood Urea Nitrogen 24 mg/dL (7-17); Calcium 9.9 mg/dL (8.4-10.2); Carbon Dioxide 29 mmol/L (22-32); Chloride 107 mmol/L (98-107); Globulin 3.6 g/dL (1.7-4.1); Glucose 99 mg/dL (80-110); Potassium 4.6 mmol/L (3.4-5.1); Sodium 140 mmol/L (137-145); Total Protein 7.2 g/dL (6.3-8.2)
[2020-05-22 18:20] LABS: Carcinoembryonic Antigen 15.8 ng/mL (0.1-3.0); HEMOLYSIS < 15 (0-50)
[2020-05-22 18:56] LABS: Macrocytosis 1+; Polychromasia 1+
[2020-05-22 18:57] LABS: Anisocytosis 2+; Platelet Estimate Increased on smear; Schistocytes 1+
[2020-05-22 18:58] LABS: Hypochromasia 1+
== END ==
PROVIDERS: Referring Provider Nurse Practitioner; Visit Provider Nurse Practitioner
DX: C50.912 Malignant neoplasm of unspecified site of left female breast (principal); Z17.0 Estrogen receptor positive status [ER+]
CPT/HCPCS: 36415; 80053; 82378; 85025; 86300

== ENCOUNTER → 2020-06-18 16:10 | Outpatient (CLI) | payer OTHER, SELFPAY ==
[2020-06-18 17:26] LABS: Add Manual Diff / Slide Review NO; Basophils Absolute Auto 100 /uL (0-100); Basophils Percent Auto 2.6 % (0-2); Eosinophils Absolute Auto 0 /uL (0-450); Hematocrit 26.9 % (36-46); Hemoglobin 8.6 g/dL (12.0-16.0); Lymphocytes Absolute Auto 300 /uL (1100-4500); Lymphocytes Percent Auto 9.5 % (25-40); Mean Corpuscular HGB Conc 31.8 % (30-36); Mean Corpuscular Volume 106.8 fL (80-100); Monocytes Absolute Auto 500 /uL (0-900); Monocytes Percent Auto 14.8 % (3-14); Neutrophils Absolute Auto 2300 /uL (1500-7000); Neutrophils Percent Auto 73.1 % (50-75); Platelet Count 428 X10^3/uL (150-400); Red Blood Cell Count 2.52 X10^6/uL (4.0-5.2); Red Cell Distribution Width 22.1 % (11.6-14.8); White Blood Cell Count 3.2 X10^3/uL (4.5-11.0)
[2020-06-18 17:44] LABS: Alanine Aminotransferase 11 IU/L (<35); Albumin 3.6 g/dL (3.5-5.0); Albumin Globulin Ratio 1.1 (1.0-2.8); Alkaline Phosphatase 71 U/L (38-126); Aspartate Aminotransferase 34 IU/L (14-36); BUN Creatinine Ratio 16.1 (6-22); Bilirubin Total 0.2 mg/dL (0.2-1.3); Blood Urea Nitrogen 18 mg/dL (7-17); Calcium 9.9 mg/dL (8.4-10.2); Carbon Dioxide 28 mmol/L (22-32); Chloride 105 mmol/L (98-107); Estimated Glomerular Filt Rate 48.8 mL/min (>60); Globulin 3.3 g/dL (1.7-4.1); Glucose 115 mg/dL (80-110); HEMOLYSIS < 15 (0-50); Potassium 4.4 mmol/L (3.4-5.1); Sodium 139 mmol/L (137-145); Total Protein 6.9 g/dL (6.3-8.2)
[2020-06-18 18:06] LABS: Anisocytosis 2+; Macrocytosis 1+; Poikilocytosis 1+; Polychromasia 1+
[2020-06-18 18:15] LABS: Carcinoembryonic Antigen 17.3 ng/mL (0.1-3.0)
== END ==
PROVIDERS: Referring Provider Nurse Practitioner; Visit Provider Nurse Practitioner
DX: C50.919 Malignant neoplasm of unspecified site of unspecified female breast (principal)
CPT/HCPCS: 36415; 80053; 82378; 85025; 86300